=== PATIENT | female | born 1970 | race African-American/Black ===

== ENCOUNTER 2017-02-25 08:41 | Outpatient (RCR) | payer SELFPAY ==
[2016-12-04 11:41] VITALS: BP 110/71
--- NOTE | 2016-12-06 09:46 | ONCOLOGY FOLLOW UP NOTE ---
EVENT DATE: December 04, 2016 REASON FOR FOLLOWUP Metastatic low grade endometrial stromal sarcoma. CHIEF COMPLAINT Patient feels well today. HISTORY OF PRESENT ILLNESS Keerthi is a delightful 46-year-old female who is here for followup after hospitalization at the [facility] in [place], [place]. She is here with her boyfriend today. To review, she had been admitted on November 17 with new-onset diabetes mellitus presenting as diabetic ketoacidosis. She had complaints at that time of abdominal pain, and at a recent presentation in [place], she had been incidentally noted to have pulmonary nodules. She was treated appropriately for the ketoacidosis, and she was also seen in consultation by Dr. Modi and myself from a medical oncology perspective. There was some initial difficulty in getting an endometrial biopsy , due to imaging concerns for a large uterine/left adnexal mass. This was seen on CT scan from November 17. She did have a core needle biopsy of a lung lesion, revealing evidence of metastatic low grade endometrial stromal sarcoma. There was some thought given to initiating chemotherapy, and she did undergo port placement, which she did quite well with. She was discharged home, and she is here to discuss further management. The patient does not have any medical coverage, and she is currently between jobs. She has not yet visited with a social human services assistants here in [place]. PAST MEDICAL HISTORY 1. Diabetes mellitus, as above. 2. Asthma. PAST SURGICAL HISTORY None on file. FAMILY HISTORY Unremarkable for malignancy. SOCIAL HISTORY Patient is a former smoker, having previously smoked about 10 cigarettes a day for five years. She quit one year ago. She is a nondrinker, and there is no history of illicit drug use. CURRENT MEDICATIONS 1. Hydrocodone p.r.n. 2. Insulin. ALLERGIES No known drug allergies. VITAL SIGNS Temperature is 97.6, blood pressure 115/71, heart rate is 82, respirations 16, oxygen saturation is 95% on room air. Weight is 102.9 kg. PHYSICAL EXAMINATION GENERAL: Patient is alert and oriented times three, in no apparent distress sitting in the exam room chair. She appears quite healthy. She is interactive and very pleasant. HEENT: Exam reveals anicteric sclerae. NEUROLOGIC: Exam is grossly nonfocal and her gait is normal. EXTREMITIES: Exam reveals no edema, clubbing or cyanosis. There is no erythema or tenderness to palpation of the extremities. The rest of the physical exam was deferred for extensive discussion today. LABORATORY STUDIES Reviewed per the [facility] [employer] record. IMAGING CT scan of chest, abdomen and pelvis from November 17 reveals a large uterine/ left adnexal mass likely a primary neoplasm. The adnexal component measured 8.2 x 4.6 cm, and appeared to communicate with the endometrial stripe. There appeared to be tumoral extension into the left ovarian vein and probable tumoral and bland thrombus extending superiorly into the left renal vein. There were greater than 30 pulmonary nodules, as well as questionable small peritoneal nodules, but no evidence of ascites. Endovaginal ultrasound performed on November 18 reveals a low attenuating mass abutting the endometrium, measuring 6.2 cm, and extending beyond the confines of the normal border of the uterus. PATHOLOGY CT-guided biopsy of a right lower lobe pulmonary nodule performed on November 20, 2016 revealed evidence of low grade endometrial stromal sarcoma. ASSESSMENT AND PLAN 1. Metastatic low grade endometrial stromal sarcoma. I had a good visit with the patient today. We reviewed some of the discussion that had taken place when she was admitted at the hospital in [place]. We moved on to discuss the results of her endometrial biopsy, which was unrevealing. We discussed the diagnosis of low grade endometrial stromal sarcoma, and this is a very rare entity. There is limited data to suggest what would be considered optimal first -line therapy, but therapy at this point does appear to be palliative in nature. She has multiple pulmonary nodules, and there does not appear to be a good surgical option in that regard. She has not yet met with Gynecologic Oncology due to lack of insurance/Medicaid. We discussed systemic therapy that could potentially be helpful for her. This would include the possibility of aromatase inhibitor, gonadotropin releasing hormone agents, as well as Megace. We discussed that there have been no [id number] comparisons for these remedies , given the rarity of this cancer. The patient does not have any medical coverage currently, and she absolutely needs to visit with the social human services assistants today to get on track. She is also between jobs. Once we are able to improve on her medical coverage situation, I would want her to be seen by Gynecologic Oncology at the [facility]. In the meantime, we will evaluate how expensive one of these medication classes would be for her. In all likelihood, we will rely on finances and tolerability of the medication. Patient had several further questions for me today, and I believe I answered all of her questions to her satisfaction. I will plan to see her back in my [place] clinic in about six weeks, sooner if there are questions or concerns. 2. Newly diagnosed diabetes, presenting with diabetic ketoacidosis. The patient needs to establish with a primary care provider here in [place]. I spent a total of 30 minutes of time [id number] with the patient and her boyfriend today, and 25 minutes of this was spent in direct counseling and coordination of care. LINDA
[2016-12-19 13:21] VITALS: BP 98/72
--- NOTE | 2016-12-19 14:10 | ONC Progress Note - NP.Halsey ---
Patient History Date of Service Dec 19, 2016 Reason For Visit/HPI Patient is seen in the clinic today with her boyfriend for education with Arimidex for her metastatic low grade endometrial stromal sarcoma. She previously consulted with Dr. Acuna to discuss her plan of care. In review , patient is pre-menopausal and has monthly periods lasting 5-7 days, although they are noted to be irregular. She reports that she is diabetic and is learning how to control her blood sugars. She feels that although it is a challenge she is doing well. Side effects were reviewed with patient regarding the Arimidex which include increased fatigue, hot flashes, blood clots or PE with side effect of warmth or acute pain in an extremity or acute shortness of breath. Joint aches could occur much like arthritis symptoms. There is a low risk of nausea and change in bowels. Written information was reviewed with patient and then given to her today. She verbalized understanding. I did share with her that I did not want her to start the medication that she should receive in the mail until I discussed the fact that she is pre- menopausal with Dr. Acuna. Arimidex is usually used for only post menopausal patient's but her case may be different and I may not know all the necessary information in the decision making. She agreed to this plan. Problem List (1) Endometrial adenocarcinoma (2) Adenocarcinoma of endometrium, stage 4 (3) Hyperkalemia (4) Diabetic ketoacidosis (5) Lung mass Oncology History Keerthi is a 46-year-old female who was recently hospitalizated at the [facility] in [place], [place]. She was admitted on November 17 with new-onset diabetes mellitus presenting as diabetic ketoacidosis. She had complaints at that time of abdominal pain, and at a recent presentation in [place], she had been incidentally noted to have pulmonary nodules. She was treated appropriately for the ketoacidosis, and she was also seen in consultation by Dr. Modi and Dr. Acuna. There was some initial difficulty in getting an endometrial biopsy, due to imaging concerns for a large uterine/left adnexal mass. This was seen on CT scan from November 17. She did have a core needle biopsy of a lung lesion, revealing evidence of metastatic low grade endometrial stromal sarcoma. There was some thought given to initiating chemotherapy, and she did undergo port placement, which she did quite well with. She was discharged home, The patient does not have any medical coverage, and she is currently between jobs. Arimidex 1mg tablet is available to patient at no cost through prescription plan arranged by social media senior associate. Psychosocial History Social History She is single but has a significant other. Occupational History Unemployed at this time Alcohol History She is a nondrinker Smoking History: Yes Smoking Status: Former Smoker (quit in 2016) Exposure to Second Hand Smoke?: Yes Medications and Allergies Reported Medications Anastrozole (ARIMIDEX) 1 Mg Tablet, 1 MG PO DAILY 12/19/16 Acetaminophen (TYLENOL) 325 Mg Tablet, 325 MG PO PRN, TAB 12/19/16 Insulin Regular, Human (NOVOLIN R) 100 Unit/1 Ml Vial, 100 UNIT IJ SS, VIAL 12/04/16 Nph, Human Insulin Isophane (NOVOLIN N) 100 Unit/1 Ml Vial, 100 UNIT SQ BID, VIAL 12/04/16 Hydrocodone Bit/Acetaminophen (HYDROCODON-ACETAMINOPHEN 5-325) 1 Each Tablet, 1 EACH PO PRN, TAB 12/04/16 Allergies: Coded Allergies: No Known Drug Allergies (Unverified , 03/16/13) Review of System/Physical Exam Physical Exam Vital Signs Temperature: 98.1 Pulse: 77 BP Systolic: 98 BP Diastolic: 72 Respiratory Rate: 16 O2 SAT: 96 O2 Delivery: Height (inches) 68.00 Weight lb: 200 Weight oz: Weight Kg (Doroteo): Pain: 0 Assessment and Plan Assessment & Plan 1. 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 Dr. Acuna discussed the fact that there is limited data to suggest what would be considered optimal first-line therapy, but therapy at this point does appear to be palliative in nature. She has multiple pulmonary nodules, and there does not appear to be a good surgical option in that regard. She has not yet met with Gynecologic Oncology due to lack of insurance/Medicaid. Systemic therapy that could potentially be helpful for her was reviewed to include one of the aromatase inhibitor, gonadotropin releasing hormone agents, as well as Megace. Education regarding Arimidex was completed today to include side effects. Written information was given to patient to review further. Patient verbalized understanding and was aware of acute side effects such as a PE or DVT. Patient was instructed to hold the oral Arimidex until further conversation with Dr. Acuna was completed. After conversing, she needs to be started on Lupron 3.75mg monthly to place her in a menopausal state and then can start Arimidex for treatment of her disease. Patient was notified of this plan of care. I will contact social media senior associate and have them initiate Lupron support. Dr. Acuna does want her to be seen by Gynecologic Oncology at the [facility]. In the meantime, we will evaluate how expensive one of these medication classes would be for her. In all likelihood, we will rely on finances and tolerability of the medication. Patient is scheduled to follow with Dr. Acuna in 6 weeks for follow up and I will move this up to next time he is here to further discuss treatment and hopefully she will have approval and will be able to start treatment. 2. Newly diagnosed diabetes, presenting with diabetic ketoacidosis. The patient has established care with Chuy Candelaria NP in [place] as her primary care provider. I personally spent a total of 20 minutes. Of that 15 minutes was counseling/ coordination of patient's care. See my note above for details. Patient has requested that this dictation be faxed to Deirdre at [facility] at [phone] Copies to: CHUY CANDELARIA NP, NANCY J CLIN NURSE-BC, ONC Dec 19, 2016 14:10
[2016-12-24] MEDS: HEPARIN FLSH (PORT) 500 UN/5ML IVP PRN (11:53)
[2016-12-24] MEDS: LIDOCAINE/SOD BICARB 8.4% SYR ID PRN (11:53)
[2017-01-08 10:03] VITALS: BP 100/57
--- NOTE | 2017-01-10 13:19 | ONCOLOGY FOLLOW UP NOTE ---
EVENT DATE: January 08, 2017 REASON FOR FOLLOWUP Metastatic low grade endometrial stromal sarcoma. CHIEF COMPLAINT Patient feels well today. HISTORY OF PRESENT ILLNESS Patient returns to clinic for a follow-up visit today. She is accompanied by her significant other. Since our last visit, she has been feeling about the same, but she does report that she had woken up a few weeks ago with pain of the right lateral lower chest. She states that it felt like she had "broken a rib." She had not sought medical attention for this, and the pain has improved significantly over time. It is currently quite mild. She reports no fevers, chills or sweats. She denies shortness of breath and productive cough. Her appetite is good, and her weight has been stable. She has been frustrated in her job [employer], and she has not yet found employment. She has been working with [facility] staff to get Medicaid, and work has also been done to get her access to Lupron and anastrozole. She has filled her prescription for anastrozole, but she has not yet begun taking it. She is due to receive her first Lupron injection today. REVIEW OF SYSTEMS Otherwise negative, and all systems are reviewed. PAST MEDICAL HISTORY 1. Diabetes mellitus, as above. 2. Asthma. PAST SURGICAL HISTORY None on file. FAMILY HISTORY Unremarkable for malignancy. SOCIAL HISTORY Patient is a former smoker, having previously smoked about 10 cigarettes a day for five years. She quit one year ago. She is a nondrinker, and there is no history of illicit drug use. CURRENT MEDICATIONS 1. Hydrocodone p.r.n. 2. Insulin. ALLERGIES No known drug allergies. VITAL SIGNS Temperature is 98.0, blood pressure 100/57, heart rate is 70, respirations 16, oxygen saturation is 97% on room air. Weight is 100.5 kg. PHYSICAL EXAMINATION GENERAL: Patient is alert and oriented times three, in no apparent distress sitting in the exam room chair. She is interactive and quite pleasant. She appears healthy. HEENT: Exam reveals anicteric sclerae. NEUROLOGIC: Exam is grossly nonfocal and her gait is normal. SKIN: Exam reveals no concerning rash or lesion. EXTREMITIES: Exam reveals no edema, clubbing or cyanosis. LABORATORIES AND IMAGING Reviewed per the [employer] [facility] [employer] records. ASSESSMENT AND PLAN Metastatic low grade endometrial stromal sarcoma. I had a good visit with the patient and her today. Symptomatically, she continues to do pretty well. I am somewhat skeptical that her right lower chest pain is cancer related , as it has improved substantially over time. She has not yet begun any type of treatment for her low grade stromal sarcoma, but she is prepared to begin treatment today. We will administer Lupron, and she will begin taking her anastrozole. We reviewed some common side effects of these medications. We moved on to discuss the importance of pushing onward to try to get Medicaid coverage for her. I strongly recommend that she be seen at the [facility] by a Gynecology Oncology, and Medicaid will need to be in place. She reports that she believes that she has turned over all appropriate paperwork. I have reviewed her situation with staff in Case Management here. These efforts will continue. Patient will have followup here in one month for a toxicity check. Depending on how things are going at that time, I would anticipate seeing her again in my clinic in two to three months. YORDAND
[2017-01-29] MEDS: LIDOCAINE/SOD BICARB 8.4% SYR ID PRN (09:47)
[2017-01-29] MEDS: HEPARIN FLSH (PORT) 500 UN/5ML IVP PRN (10:47)
[2017-01-29 10:50] VITALS: BP 114/85
--- NOTE | 2017-01-29 12:05 | RADIOLOGY IMAGING REPORT ---
FACILITY: [facility] [place] PATIENT NAME: Keerthi Vasquez : 1970 MR: [id number] V: [id number] EXAM DATE: ORDERING PHYSICIAN: DARSHAN LEVINE TECHNOLOGIST: Location: [facility] Patient: Keerthi Vasquez : 1970 Visit/Account:[id number] Date of Sevice: 01/29/2017 CHEST/AB/PELV W/CONTRAST HISTORY: Endometrial cancer ADDITIONAL HISTORY: None. TECHNIQUE: Following administration of IV contrast axial images acquired through the chest abdomen a nd pelvis during the portal venous phase. Coronal and sagittal reformatting was also performed. Dose Lowering Technique One of the following dose optimization techniques was utilized in the performance of this exam: Autom ated exposure control; adjustment of the mA and/or kV according to the patient's size; or use of an i terative reconstruction technique. Specific details can be referenced in the facility's radiology C T exam operational policy. CONTRAST: 75 mL Isovue-370 COMPARISON: None. FINDINGS: CHEST: Lungs/Pleura: There are numerous noncalcified pulmonary nodules seen throughout the lungs consistent with pulmonary metastases. The largest right upper lobe nodule measures 1.5 cm in diameter and is best seen on image 43 of serie s 3. The largest right middle lobe nodule measures 9 mm and is best seen on image 61. The largest right lower lobe nodule measures 1.7 cm in diameters best seen on image 73 The largest left lower lobe pulmonary nodule measures 1.3 cm in diameters best seen on image 87 The largest left upper lobe pulmonary nodule measures 1.3 cm in diameters best seen on image 37. There Is a small amount of patchy airspace consolidation in the medial left upper lobe No evidence of pleural effusions. Mediastinum/lymph nodes: Negative. Heart/vessels: Pulmonary emboli are noted in the segmental and subsegmental arterial branches to the right lower lobe Bones/soft tissues: There is a gentle S-shaped scoliosis of the thoracolumbar spine. No aggressive appearing bone lesions are seen ABDOMEN AND PELVIS: Hepatobiliary: Negative. Spleen: There is a 7 mm calcification medial aspect of the spleen Pancreas: Negative. Adrenals: Negative. Kidneys ureters and bladder : There is a subcentimeter cortical hypodensity midpole of the left kidne y which is too small to characterize Genitalia: Uterus is enlarged extremely heterogeneous with distortion of the endometrial canal. Ther e is a hypoattenuating mass measuring 7.7 x 3.2 x 4 cm projecting from the superior left side of the uterus there is an additional hypoattenuating process measuring 3.1 x 2.6 x 5.1 cm projecting from th e right lateral aspect of the uterus this is apparently related to patient's reported endometrial mal ignancy. GI: Negative. Vessels/spaces/nodes: There is a 1.2 x 0.7 cm left para-aortic lymph nodes node. There is a 1.2 x 0.8 cm left external iliac lymph node Bones/soft tissues: No aggressive appearing bone lesions are seen Additional findings: None pertinent. IMPRESSION: The uterus is enlarged extremely heterogeneous with distortion of the endometrial canal. The hypoatt enuating masses projecting from both the right lateral aspect the uterus and superior left lateral as pect of the uterus (the latter being larger) apparently related to patient's reported endometrial mal ignancy There is a 1.2 x 0.7 cm left para-aortic lymph node and a 1.2 x 0.8 cm left external iliac lymph node There are numerous large pulmonary nodules throughout both lungs consistent with pulmonary metastases as detailed above A small volume of pulmonary emboli are noted in the segmental and subsegmental arterial branches to t he right lower lobe Results were called to Jana Whaley 01/29/2017 11:59 AM. A message was also left for Dulce Dominguez. Report Dictated By: Lolis Colón MD at 01/29/2017 11:35 AM Report E-Signed By: Lolis Colón MD at 01/29/2017 12:01 PM CHRISTINAN:YIMI
--- NOTE | 2017-01-29 15:30 | ONC Progress Note - NP.Halsey ---
Patient History Date of Service Jan 29, 2017 Reason For Visit/HPI Patient is seen in the clinic today for review of recent CT scan that was completed for her metastatic low-grade endometrial stromal sarcoma. Patient is currently on Arimidex and Lupron injections. There is a very low risk of developing a pulmonary embolism while on Arimidex. Patient is tolerating treatment without difficulty. CT scan shows a small volume pulmonary embolism noted on the right lower lobe. Patient is denying shortness of breath or difficulty breathing. She has reported that she's had a mild discomfort on the right scapular area which is new over the last several days. Oncology History Keerthi is a 46-year-old female who was recently hospitalizated at the [facility] in [place], [place]. She was admitted on November 17 with new-onset diabetes mellitus presenting as diabetic ketoacidosis. She had complaints at that time of abdominal pain, and at a recent presentation in [place], she had been incidentally noted to have pulmonary nodules. She was treated appropriately for the ketoacidosis, and she was also seen in consultation by Dr. Modi and Dr. Acuna. There was some initial difficulty in getting an endometrial biopsy, due to imaging concerns for a large uterine/left adnexal mass. This was seen on CT scan from November 17. She did have a core needle biopsy of a lung lesion, revealing evidence of metastatic low grade endometrial stromal sarcoma. There was some thought given to initiating chemotherapy, and she did undergo port placement, which she did quite well with. She was discharged home, The patient does not have any medical coverage, and she is currently between jobs. Arimidex 1mg tablet is available to patient at no cost through prescription plan arranged by foster care social worker. Lupron injection administered on 01/22/2017. Psychosocial History Social History She is single but has a significant other. Occupational History Unemployed at this time Alcohol History She is a nondrinker Exposure to Second Hand Smoke?: Yes Medications and Allergies Active Scripts Apixaban (ELIQUIS) 5 Mg Tablet, 5 MG PO BID for 30 Days, #60 TAB 5 Refills Take 5mg bid after completion of 10mg bid x 7 days Prov:DULCE PUGA CLASSROOM COORDINATOR-BC, ONC 01/29/17 Apixaban (ELIQUIS) 5 Mg Tablet, 10 MG PO BID for 7 Days, #14 TAB Take 10mg bid x 7 days then decrease to 5mg po bid x 6 months Prov:DULCE PUGA Diamante CLASSROOM COORDINATOR-BC, ONC 01/29/17 Leuprolide Acetate (LUPRON DEPOT) 3.75 Mg Syringekit, 3.75 MG IM q28 days, #12 MG Prov:DULCE PUGA Diamante CLASSROOM COORDINATOR-BC, ONC 12/20/16 Reported Medications Anastrozole (ARIMIDEX) 1 Mg Tablet, 1 MG PO DAILY 12/19/16 Acetaminophen (TYLENOL) 325 Mg Tablet, 325 MG PO PRN, TAB 12/19/16 Insulin Regular, Human (NOVOLIN R) 100 Unit/1 Ml Vial, 100 UNIT IJ SS, VIAL 12/04/16 Nph, Human Insulin Isophane (NOVOLIN N) 100 Unit/1 Ml Vial, 100 UNIT SQ BID, VIAL 12/04/16 Hydrocodone Bit/Acetaminophen (HYDROCODON-ACETAMINOPHEN 5-325) 1 Each Tablet, 1 EACH PO PRN, TAB 12/04/16 Allergies: Coded Allergies: No Known Drug Allergies (Unverified , 03/16/13) Review of System/Physical Exam Review of Systems All Systems Reviewed/Normal: Yes, Except as Noted Hematologic: Positive for Fatigue Musculoskeletal: Positive for Muscle Pain (noted in the right scapular area) Physical Exam Vital Signs Temperature: 97.8 Pulse: 63 BP Systolic: 114 BP Diastolic: 85 Respiratory Rate: 16 O2 SAT: 96 O2 Delivery: Height (inches) 68.00 Weight lb: Weight oz: Weight Kg (Doroteo): Pain: 0 ECOG Score: 0 General: Stable, Well Developed, Well Nourished, Not In Acute Distress HEENT: No Trauma, No Icterus, No Mucositis Neck: Supple Heart: Regular Rate, Regular Rhythm Abdomen: Soft and Nontender, No Hepatosplenomegaly Extremities: No Edema Psychiatric: Mood appears normal, Affect appears normal Skin: No Skin Rashes, No Bruising, No Purpura Diagnostic Studies Diagnostic Studies Radiology IMPRESSION: The uterus is enlarged extremely heterogeneous with distortion of the endometrial canal. The hypoattenuating masses projecting from both the right lateral aspect the uterus and superior left lateral aspect of the uterus (the latter being larger) apparently related to patient's reported endometrial malignancy There is a 1.2 x 0.7 cm left para-aortic lymph node and a 1.2 x 0.8 cm left external iliac lymph node There are numerous large pulmonary nodules throughout both lungs consistent with pulmonary metastases as detailed above A small volume of pulmonary emboli are noted in the segmental and subsegmental arterial branches to the right lower lobe Results were called to Jana Whaley 01/29/2017 11:59 AM. A message was also left for Dulce Puga. Report Dictated By: Lolis Colón MD at 01/29/2017 11:35 AM Assessment and Plan Assessment & Plan 1. 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 Dr. Acuna discussed the fact that there is limited data to suggest what would be considered optimal first-line therapy, but therapy at this point does appear to be palliative in nature. She has multiple pulmonary nodules, and there does not appear to be a good surgical option in that regard. She has not yet met with Gynecologic Oncology due to lack of insurance/Medicaid. She does have an appointment with in [place] this Friday. She is currently on Arimidex and Lupron therapy x one week. Lupron 3.75mg monthly to place her in a menopausal state and then can start Arimidex for treatment of her disease. Patient has a pulmonary embolism on recent CT scan that was reviewed with her today. Because patient has not been on medication very long it is very possible that this pulmonary embolism has been there. Patient has several pulmonary metastasis and lymphadenopathy in the abdominal area. Please see report. No change in treatment at this time. Plan of care may change after patient meets with [facility] surgeon. 2. Newly diagnosed diabetes, presenting with diabetic ketoacidosis. The patient has established care with Mari Candelaria NP in [place] as her primary care provider. 3. New evidence of pulmonary embolism in the right lower lobe. Patient is educated today regarding treatment with Eliquis. She will be started on 10 mg tabs by mouth twice a day 10 days followed by 5 mg tabs by mouth twice a day 6 months. Patient will be reevaluated prior to discontinuation. She is encouraged to let her surgeon no that she has been started on a new medication. I personally spent a total of 35 minutes. Of that 35 minutes was counseling/ coordination of patient's care. Copies to: DARSHAN LEVINE MD, NANCY J CLASSROOM COORDINATOR-BC, ONC Jan 29, 2017 15:30
[2017-01-29 16:21] VITALS: BP 121/81
[2017-02-05 09:34] VITALS: BP 114/70
--- NOTE | 2017-02-05 10:35 | ONC Progress Note - NP.Halsey ---
Patient History Date of Service Feb 05, 2017 Reason For Visit/HPI Patient is seen in the clinic today for follow-up after starting eliquis for small volume pulmonary embolism noted in the right lower lobe on recent CT. Patient is currently on Arimidex and Lupron injection for her metastatic low- grade endometrial stromal sarcoma. Patient had CT scan completed recently which was reviewed with her last office visit and is showing a response to current treatment. Patient followed with TECHNOLOGY EDUCATION INSTRUCTOR surgeon in [place]. She reports that she refused to have a hysterectomy due to emotional attachments to her uterus and it being the connection between her and her children that are no longer in her custody. Patient denies any side effects with the eliquis and denies any shortness of breath or difficulty breathing. I will have social science teacher assist with medication replacement. Patient will also be due for Lupron injection on 2016. Oncology History Keerthi is a 46-year-old female who was recently hospitalizated at the [facility] in [place], [place]. She was admitted on November 17 with new-onset diabetes mellitus presenting as diabetic ketoacidosis. She had complaints at that time of abdominal pain, and at a recent presentation in [place], she had been incidentally noted to have pulmonary nodules. She was treated appropriately for the ketoacidosis, and she was also seen in consultation by Dr. Modi and Dr. Acuna. There was some initial difficulty in getting an endometrial biopsy, due to imaging concerns for a large uterine/left adnexal mass. This was seen on CT scan from November 17. She did have a core needle biopsy of a lung lesion, revealing evidence of metastatic low grade endometrial stromal sarcoma. There was some thought given to initiating chemotherapy, and she did undergo port placement, which she did quite well with. She was discharged home, The patient does not have any medical coverage, and she is currently between jobs. Arimidex 1mg tablet is available to patient at no cost through prescription plan arranged by social science teacher. Lupron injection administered on 01/22/2017. Psychosocial History Social History She is single but has a significant other. Occupational History Unemployed at this time Alcohol History She is a nondrinker Exposure to Second Hand Smoke?: Yes Medications and Allergies Active Scripts Apixaban (ELIQUIS) 5 Mg Tablet, 5 MG PO BID for 30 Days, #60 TAB 5 Refills Take 5mg bid after completion of 10mg bid x 7 days Prov:URMILA PUGA TRAIN BRAKER-BC, ONC 01/29/17 Apixaban (ELIQUIS) 5 Mg Tablet, 10 MG PO BID for 7 Days, #14 TAB Take 10mg bid x 7 days then decrease to 5mg po bid x 6 months Prov:URMILA PUGA TRAIN BRAKER-BC, ONC 01/29/17 Leuprolide Acetate (LUPRON DEPOT) 3.75 Mg Syringekit, 3.75 MG IM q28 days, #12 MG Prov:URMILA PUGA Diamante TRAIN BRAKER-BC, ONC 12/20/16 Reported Medications Anastrozole (ARIMIDEX) 1 Mg Tablet, 1 MG PO DAILY 12/19/16 Acetaminophen (TYLENOL) 325 Mg Tablet, 325 MG PO PRN, TAB 12/19/16 Insulin Regular, Human (NOVOLIN R) 100 Unit/1 Ml Vial, 100 UNIT IJ SS, VIAL 12/04/16 Nph, Human Insulin Isophane (NOVOLIN N) 100 Unit/1 Ml Vial, 100 UNIT SQ BID, VIAL 12/04/16 Hydrocodone Bit/Acetaminophen (HYDROCODON-ACETAMINOPHEN 5-325) 1 Each Tablet, 1 EACH PO PRN, TAB 12/04/16 Allergies: Coded Allergies: No Known Drug Allergies (Unverified , 03/16/13) Review of System/Physical Exam Review of Systems All Systems Reviewed/Normal: Yes, Except as Noted Hematologic: Positive for Fatigue Physical Exam Vital Signs Temperature: 98.3 Pulse: 80 BP Systolic: 114 BP Diastolic: 70 Respiratory Rate: 16 O2 SAT: 96 O2 Delivery: Height (inches) 68.00 Weight lb: Weight oz: Weight Kg (Doroteo): Pain: 0 ECOG Score: 0 General: Stable, Well Developed, Well Nourished, Not In Acute Distress Lungs: Clear to Auscultation Heart: Regular Rate, Regular Rhythm Extremities: No Cyanosis, No Clubbing, No Edema Psychiatric: Mood appears normal, Affect appears normal Skin: No Skin Rashes, No Bruising, No Purpura Assessment and Plan Assessment & Plan 1. 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 Dr. Acuna discussed the fact that there is limited data to suggest what would be considered optimal first-line therapy, but therapy at this point does appear to be palliative in nature. She had multiple pulmonary nodules on baseline CT scan from11-17-16, and there she did not appear to be a good surgical option in that regard. She was started on Lupron 3.[address] her in a menopausal state and then Arimidex 1 mg daily. Patient then experienced a pulmonary embolism on recent CT scan and was started on eliquis. Fortunately she has also had a good response to treatment with a significant decrease in the pulmonary nodules and uterus mass has decreased from 8.6 to 7.7 cm. patient did follow with in [place] last Claudio and receive the recommendation for a hysterectomy however patient has refused this form of treatment due to emotional ties. She will continue on current form of treatment. I will have social science teacher continue replacement drug for Lupron, Arimidex and to initiate eliquis. Patient will follow in one month for Lupron injection. 2. Newly diagnosed diabetes, presenting with diabetic ketoacidosis. The patient has established care with Chuy Candelaria NP in [place] as her primary care provider. 3. New evidence of pulmonary embolism in the right lower lobe. Patient is educated today regarding treatment with Eliquis. She will be started on 10 mg tabs by mouth twice a day 10 days followed by 5 mg tabs by mouth twice a day 6 months or longer. Patient will be reevaluated prior to discontinuation. I personally spent a total of 35 minutes. Of that 35 minutes was counseling/ coordination of patient's care. Copies to: CHUY CANDELARIA NP, NANCY J TRAIN BRAKER-BC, ONC Feb 05, 2017 10:35
[2017-02-11 15:53] VITALS: BP 128/72
[~2017-02-25] VITALS: Ht 172.7 cm; Wt 105.0 kg
[~2017-02-25 08:41] MED LIST: ACET-1966 PO; ALBU8.5H12 IH; ALTEPLASE RECOMB 2 MG VIAL IVP PRN; ANAS1TAB35 PO; APIX5TAB PO; DEXTROSE 5%(*) 100 ML BAG 100 ML IVPB PRN; FLUC150T40 PO; HYDR-385 PO; LEUP3.753 IM; LEUPROLIDE IM ONLY ONE; LEUPROLIDE IM ONLY PRN; NOVOLINRPT IJ; NPH,100V12 SQ; NS(*) 0.9% 100 ML BAG 100 ML IVPB PRN; NS(*) 0.9% 500 ML BAG 500 ML IV PRN; TRIA15CR40 TP; WATER STERILE 10 ML VIAL IVP PRN
[2017-02-25] MEDS: HEPARIN FLSH (PORT) 500 UN/5ML IVP PRN (08:48)
[2017-02-25] MEDS: LIDOCAINE/SOD BICARB 8.4% SYR ID PRN (08:48)
[2017-02-25 08:58] VITALS: BP 107/82
== END 2017-03-03 ==
LOC: SPU 08:41
PROVIDERS: ATTEND Internal Medicine Medical Oncology
DX: C54.1 Malignant neoplasm of endometrium (principal); E11.10 Type 2 diabetes mellitus with ketoacidosis without coma; Z87.891 Personal history of nicotine dependence; R07.89 Other chest pain; R91.8 Other nonspecific abnormal finding of lung field; I26.99 Other pulmonary embolism without acute cor pulmonale; D73.89 Other diseases of spleen; N85.2 Hypertrophy of uterus; Z79.899 Other long term (current) drug therapy; R59.0 Localized enlarged lymph nodes
CPT/HCPCS: 71260; 74177; 96372; 96523; 99212; J1642; J1950; J7050; Q9967; 99202

== ENCOUNTER 2017-03-10 13:38 | Emergency (ER) | payer SELFPAY ==
[~2017-03-10] VITALS: Ht 172.7 cm; Wt 106.7 kg
[~2017-03-10 13:38] MED LIST changes: -ALTEPLASE RECOMB 2 MG VIAL IVP PRN; -DEXTROSE 5%(*) 100 ML BAG 100 ML IVPB PRN; +FERR-53 PO; -LEUPROLIDE IM ONLY ONE; -LEUPROLIDE IM ONLY PRN; -NS(*) 0.9% 100 ML BAG 100 ML IVPB PRN; -NS(*) 0.9% 500 ML BAG 500 ML IV PRN; -WATER STERILE 10 ML VIAL IVP PRN
[2017-03-10] MEDS ORDERED: [UNRECOGNIZED DRUG - OTHER] (13:54)
--- NOTE | 2017-03-10 14:07 | ER Report ---
History and Physical Time Seen By MD: 13:50 Hx. of Stated Complaint: "PASSING TISSUE" HPI/ROS CHIEF COMPLAINT: Passing tissue HISTORY OF PRESENT ILLNESS: Patient is a 46-year-old female who presents the ED with complaint of passing tissue and clots. She states that she was diagnosed with metastatic endometrial cancer last year and has been seeing oncology. She was subsequently diagnosed with a pulmonary embolism 3 weeks ago and has been on Eloquis since then. She states that she has not been having any menstrual periods but now feels that she is having a normal menstrual period and the amount of blood but is also has been having large pieces of tissue passed in the past 2 days. She does see a obstetric oncologist. She denies any abdominal pain. She has not had any chest pain or shortness of breath. She has not noted any dizziness. She states that she has recently started iron supplement as of last week due to some iron deficiency. She has not had any surgery for endometrial cancer thus far. Constitutional: No fever, no chills. Cardiovascular: No chest pain, no palpitations. Respiratory: No cough, no shortness of breath. Gastrointestinal: See history of present illness. No nausea, vomiting, diarrhea , constipation. Genitourinary: No hematuria. Musculoskeletal: No back pain. Skin: No rashes. Neurological: No headache. Allergies: Coded Allergies: No Known Drug Allergies (Unverified , 03/10/17) Home Meds Active Scripts Ferrous Sulfate (FERROUS SULFATE) 325 Mg Tablet, 325 MG PO BID for anemia, #60 TAB 6 Refills Prov:URMILA PUGA FOOD MIXER ASSEMBLER-BC, ONC 03/07/17 Apixaban (ELIQUIS) 5 Mg Tablet, 5 MG PO BID for 30 Days, #60 TAB 5 Refills Take 5mg bid after completion of 10mg bid x 7 days Prov:URMILA PUGA FOOD MIXER ASSEMBLER-BC, ONC 01/29/17 Apixaban (ELIQUIS) 5 Mg Tablet, 10 MG PO BID for 7 Days, #14 TAB Take 10mg bid x 7 days then decrease to 5mg po bid x 6 months Prov:URMILA PUGA FOOD MIXER ASSEMBLER-BC, ONC 01/29/17 Leuprolide Acetate (LUPRON DEPOT) 3.75 Mg Syringekit, 3.75 MG IM q28 days, #12 MG Prov:URMILA PUGA FOOD MIXER ASSEMBLER-BC, ONC 12/20/16 Reported Medications [Remedex] No Conflict Check 03/10/17 Anastrozole (ARIMIDEX) 1 Mg Tablet, 1 MG PO DAILY 12/19/16 Acetaminophen (TYLENOL) 325 Mg Tablet, 325 MG PO PRN, TAB 12/19/16 Insulin Regular, Human (NOVOLIN R) 100 Unit/1 Ml Vial, 100 UNIT IJ SS, VIAL 12/04/16 Nph, Human Insulin Isophane (NOVOLIN N) 100 Unit/1 Ml Vial, 100 UNIT SQ BID, VIAL 12/04/16 Hydrocodone Bit/Acetaminophen (HYDROCODON-ACETAMINOPHEN 5-325) 1 Each Tablet, 1 EACH PO PRN, TAB 12/04/16 Reviewed Nurses Notes: Yes Old Medical Records Reviewed: Yes Exposure to Second Hand Smoke?: Yes Hx Substance Use Disorder: No Hx Alcohol Use: No Constitutional Vital Sign - Last 24 Hours 03/10/17 03/10/17 03/10/17 03/10/17 13:38 13:43 13:49 13:53 Temp 97.6 Pulse ??? 79 75 Resp 14 B/P (MAP) 106/59 106/59 (75) Pulse Ox 98 97 O2 Delivery Room Air 03/10/17 03/10/17 03/10/17 14:00 14:08 15:00 Pulse 79 B/P (MAP) 102/73 (83) ???/??? (1665) Pulse Ox 98 Physical Exam General Appearance: The patient is alert, has no immediate need for airway protection and no signs of toxicity. She appears to be in no acute distress. Eyes: Pupils equal and round no pallor or injection. ENT, Mouth: Mucous membranes are moist. Respiratory: There are no retractions, lungs are clear to auscultation. Cardiovascular: Regular rate and rhythm. Gastrointestinal: Abdomen is soft and non tender, no masses, bowel sounds normal in all 4 quadrants. Pelvic exam: The vulva was normal no lesions. The vagina did not have significant discharge. The cervix was difficult to see due to body habitus. There was small amount of blood but no tissue or clots appreciated. No discharge appreciated. No adnexal tenderness. No masses and no tenderness. adnexa The exam was performed with a rating specialist. Skin: Warm and dry, no rashes. Musculoskeletal: Neck is supple non tender. Extremities are nontender, nonswollen and have full range of motion. Medical Decision Making Data Points Result Diagram: 03/10/17 1445 03/10/17 1445 Laboratory Hematology Test 03/10/17 14:45 Red Blood Count 4.18 M/uL (4.17-5.56) Mean Corpuscular Volume 74.4 fL (80.0-96.0) Mean Corpuscular Hemoglobin 22.6 pg (26.0-33.0) Mean Corpuscular Hemoglobin Concent 30.4 g/dL (32.0-36.0) Red Cell Distribution Width 17.0 % (11.5-14.5) Mean Platelet Volume 8.8 fL (7.2-11.1) Neutrophils (%) (Auto) 57.4 % (39.4-72.5) Lymphocytes (%) (Auto) 33.2 % (17.6-49.6) Monocytes (%) (Auto) 5.7 % (4.1-12.4) Eosinophils (%) (Auto) 2.9 % (0.4-6.7) Basophils (%) (Auto) 0.8 % (0.3-1.4) Nucleated RBC Relative Count (auto) 0.0 /100WBC Neutrophils # (Auto) 3.8 K/uL (2.0-7.4) Lymphocytes # (Auto) 2.2 K/uL (1.3-3.6) Monocytes # (Auto) 0.4 K/uL (0.3-1.0) Eosinophils # (Auto) 0.2 K/uL (0.0-0.5) Basophils # (Auto) 0.1 K/uL (0.0-0.1) Nucleated RBC Absolute Count (auto) 0.00 K/uL Prothrombin Time 15.4 seconds (12.0-14.4) Prothromb Time International Ratio 1.20 Activated Partial Thromboplast Time 103 seconds (23-35) Sodium Level 139 mmol/L (137-145) Potassium Level 3.5 mmol/L (3.5-5.0) Chloride Level 105 mmol/L (98-107) Carbon Dioxide Level 24 mmol/L (22-31) Blood Urea Nitrogen 12 mg/dl (7-18) Creatinine 0.90 mg/dl (0.52-1.04) Glomerular Filtration Rate Calc > 60.0 Random Glucose 165 mg/dl (75-110) Calcium Level 8.2 mg/dl (8.4-10.2) Total Bilirubin 0.3 mg/dl (0.2-1.3) Aspartate Amino Transf (AST/SGOT) 17 U/L (0-35) Alanine Aminotransferase (ALT/SGPT) 27 U/L (0-56) Alkaline Phosphatase 98 U/L (0-126) Total Protein 8.0 gm/dl (6.3-8.2) Albumin 3.5 g/dl (3.5-5.0) Chemistry Test 03/10/17 14:45 White Blood Count 6.6 k/uL (4.5-11.0) Red Blood Count 4.18 M/uL (4.17-5.56) Hemoglobin 9.5 g/dL (12.0-16.0) Hematocrit 31.1 % (34.0-47.0) Mean Corpuscular Volume 74.4 fL (80.0-96.0) Mean Corpuscular Hemoglobin 22.6 pg (26.0-33.0) Mean Corpuscular Hemoglobin Concent 30.4 g/dL (32.0-36.0) Red Cell Distribution Width 17.0 % (11.5-14.5) Platelet Count 272 K/uL (150-450) Mean Platelet Volume 8.8 fL (7.2-11.1) Neutrophils (%) (Auto) 57.4 % (39.4-72.5) Lymphocytes (%) (Auto) 33.2 % (17.6-49.6) Monocytes (%) (Auto) 5.7 % (4.1-12.4) Eosinophils (%) (Auto) 2.9 % (0.4-6.7) Basophils (%) (Auto) 0.8 % (0.3-1.4) Nucleated RBC Relative Count (auto) 0.0 /100WBC Neutrophils # (Auto) 3.8 K/uL (2.0-7.4) Lymphocytes # (Auto) 2.2 K/uL (1.3-3.6) Monocytes # (Auto) 0.4 K/uL (0.3-1.0) Eosinophils # (Auto) 0.2 K/uL (0.0-0.5) Basophils # (Auto) 0.1 K/uL (0.0-0.1) Nucleated RBC Absolute Count (auto) 0.00 K/uL Prothrombin Time 15.4 seconds (12.0-14.4) Prothromb Time International Ratio 1.20 Activated Partial Thromboplast Time 103 seconds (23-35) Glomerular Filtration Rate Calc > 60.0 Calcium Level 8.2 mg/dl (8.4-10.2) Total Bilirubin 0.3 mg/dl (0.2-1.3) Aspartate Amino Transf (AST/SGOT) 17 U/L (0-35) Alanine Aminotransferase (ALT/SGPT) 27 U/L (0-56) Alkaline Phosphatase 98 U/L (0-126) Total Protein 8.0 gm/dl (6.3-8.2) Albumin 3.5 g/dl (3.5-5.0) Coagulation Test 03/10/17 14:45 Prothrombin Time 15.4 seconds Prothromb Time International Ratio 1.20 Activated Partial Thromboplast Time 103 seconds ED Course/Re-evaluation ED Course Will obtain labs with patient. 03/10/2017 4:03:04 pm - Discussed all labs with patient. She does have some anemia that is slightly worse than last week which she also has not started her iron supplementation. Advised her to start this. She will need to watch the amount of bleeding that she is having and if this continues or worsens she needs to return to the emergency department. Will have her do full close follow- up with her candles pourer. Discussed patient with Dr. Makayla Daily, DUCT MAKER at [facility] , who advises to have patient continue her Alquist at this time and just monitor the bleeding and have close follow-up with gynecology here in [place]. Discussed all this with patient and she is comfortable with this plan. Decision to Disposition Date: Mar 10, 2017 Decision to Disposition Time: 16:04 Depart Departure Latest Vital Signs Vital Signs Date Time Temp Pulse Resp B/P (MAP) Pulse Ox O2 Delivery O2 Flow Rate FiO2 03/10/17 15:00 ???/??? (1665) 03/10/17 14:08 79 98 03/10/17 13:43 97.6 14 Room Air Impression: Primary Impression: Endometrial adenocarcinoma Additional Impressions: Vaginal bleeding Anemia Anticoagulation adequate Condition: Improved Disposition: HOME OR SELF-CARE Patient Instructions: Anemia (ED), Dysfunctional Uterine Bleeding (ED) Additional Instructions: Start your iron supplementation. Follow-up with primary care provider and OB/ GAS METER INSTALLER in 1-2 days. If having any worsening or concerning symptoms may return to the emergency department. MD Consult Note: Dr. Makayla Daily, DUCT MAKER at [facility] Problem Qualifiers Additional Impressions: Anemia Anemia type: unspecified type Qualified Codes: D64.9 - Anemia, unspecified ZOE VÁSQUEZ PA-C Mar 10, 2017 14:07
[2017-03-10] MEDS ORDERED: LIDOCAINE/PRILOCAINE 5 GM TUBE TP ONE (14:36)
[2017-03-10 14:54] LABS: PLATELET COUNT, AUTOMATED 272 K/uL (150-450)
[2017-03-10 15:11] LABS: INR 1.2
[2017-03-10 16:11] VITALS: BP 121/93
[2017-03-10] MEDS ORDERED: HEPARIN FLSH (PORT) 500 UN/5ML ONE (16:20)
== END 2017-03-10 17:00 | disposition home or self-care (01) ==
LOC: ER 13:46
DX: C54.1 Malignant neoplasm of endometrium (principal); D64.9 Anemia, unspecified; N93.9 Abnormal uterine and vaginal bleeding, unspecified; Z79.01 Long term (current) use of anticoagulants
CPT/HCPCS: 82040; 82247; 82310; 82374; 82435; 82565; 82947; 84075; 84132; 84155; 84295; 84450; 84460; 84520; 85025; 85610; 85730; 88305; 99284

== ENCOUNTER 2017-04-22 11:30 | Outpatient (RCR) | payer MEDICAID ==
[~2017-04-22 11:30] MED LIST changes: +[UNRECOGNIZED DRUG - OTHER]
[2017-04-24] MEDS ORDERED: NPH,100V12 SQ (15:52)
[2017-04-24] MEDS ORDERED: NOVOLINRPT IJ (15:52)
[2017-04-28] MEDS ORDERED: [UNRECOGNIZED DRUG - CODE] MC (15:10)
[2017-04-28] MEDS ORDERED: BLOO-1511 MC (15:10)
[2017-04-28] MEDS ORDERED: ISOP1TOW MC (15:10)
== END 2017-04-23 10:23 | disposition home or self-care (01) ==
LOC: RAON 11:30
PROVIDERS: ATTEND Radiology Radiation Oncology
DX: C54.1 Malignant neoplasm of endometrium (principal); E10.10 Type 1 diabetes mellitus with ketoacidosis without coma; Z79.899 Other long term (current) drug therapy; Z79.4 Long term (current) use of insulin; Z87.891 Personal history of nicotine dependence
CPT/HCPCS: 99202

== ENCOUNTER → 2017-04-24 | Outpatient (CLI) | payer MEDICAID ==
[~2017-04-24] MED LIST changes: +BLOO-1511 MC; +ISOP1TOW MC; +[UNRECOGNIZED DRUG - CODE] MC
== END ==
LOC: LAB 14:25
PROVIDERS: ATTEND Emergency Medicine
DX: E11.9 Type 2 diabetes mellitus without complications (principal); E66.9 Obesity, unspecified; E83.51 Hypocalcemia
CPT/HCPCS: 36415; 82306; 82465; 83036; 83718; 84443; 84478

== ENCOUNTER 2017-05-15 08:20 | Outpatient (RCR) | payer MEDICAID ==
[2017-03-05 14:43] VITALS: BP 103/75
[2017-03-05 15:54] LABS: PLATELET COUNT, AUTOMATED 235 K/uL (150-450)
--- NOTE | 2017-03-05 22:17 | ONCOLOGY FOLLOW UP NOTE ---
EVENT DATE: March 05, 2017 REASON FOR FOLLOWUP Metastatic low grade endometrial stromal sarcoma. CHIEF COMPLAINT Fatigue. HISTORY OF PRESENT ILLNESS Keerthi returns to the clinic for a follow-up visit today. She is accompanied by her significant other. She reports that for the most part she has been feeling okay, but fatigue has become more problematic. She did have a period of time for about one week recently where she had rather significant vaginal bleeding. This is after she had started Eliquis for recently diagnosed pulmonary embolus. She has been taking Eliquis for the PE, and has otherwise tolerated it well. She has had no further vaginal bleeding. She does report some modest hot flashes, but these have been tolerable. She has had no shortness of breath, chest pain, or productive cough. Her appetite is good, and her weight has been stable. She has had no changes in her bowel habits. REVIEW OF SYSTEMS Otherwise negative, and all systems were reviewed. PAST MEDICAL HISTORY 1. Diabetes mellitus, as above. 2. Asthma. PAST SURGICAL HISTORY None on file. FAMILY HISTORY Unremarkable for malignancy. SOCIAL HISTORY Patient is a former smoker, having previously smoked about 10 cigarettes a day for five years. She quit one year ago. She is a nondrinker, and there is no history of illicit drug use. CURRENT MEDICATIONS 1. Eliquis. 2. Lupron injections per protocol. 3. Arimidex 1 mg p.o. daily. 4. Tylenol p.r.n. 5. Insulin. 6. Hydrocodone/acetaminophen p.r.n. ALLERGIES No known drug allergies. VITAL SIGNS Temperature is 98.8, blood pressure 103/75, pulse is 80, respirations 16, oxygen saturation is 96% on room air. Weight is 106.7 kg. PHYSICAL EXAMINATION GENERAL: Patient is alert and oriented times three, in no apparent distress sitting in the exam room chair. She is interactive and quite pleasant. She appears somewhat tired. HEENT: Exam reveals anicteric sclerae. NEUROLOGIC: Exam is grossly nonfocal and her gait is normal. SKIN: Exam reveals no concerning rash or lesion. EXTREMITIES: Exam reveals no edema, clubbing or cyanosis. LABORATORY Studies are reviewed per the [facility] record. IMAGING CT of the chest, abdomen and pelvis performed on January 29, 2017 reveals an enlarged uterus with extreme heterogeneity and distortion of the endometrial canal. Hypoattenuating masses are projected from both the right lateral aspect of the uterus and superior left lateral aspect of the uterus. There is a 1.7 x 0.7 cm left periaortic lymph node and a 1.2 x 0.8 cm left external iliac lymph node. There are numerous large pulmonary nodules throughout both lungs. There is a small volume of pulmonary emboli noted in the segmental and subsegmental arterial branches to the right lower lobe. ASSESSMENT AND PLAN 1. Metastatic low grade endometrial stromal sarcoma. Keerthi continues on Lupron injections and Arimidex for treatment of her metastatic low grade endometrial stromal sarcoma. She has been tolerating therapy for the most part quite well, with the exception of fatigue. I would hope that with more time on therapy her fatigue will improve. With her recent history of what sounds like fairly heavy vaginal bleeding, likely due to the primary tumor itself, I would wonder about possible new iron deficiency anemia. We will check her labs again today. If she is iron deficient, we will start her on oral iron supplementation. If she does not tolerate this well, iron intravenously is certainly an option. We spent time today discussing her follow-up CT results. The CT scan was performed after a very short period of time on therapy, and it is already showing evidence of response compared to her prior study performed at the time of her diagnosis. She was aware of these results, and she is happy with how things are going in general. 2. Pulmonary emboli. Keerthi has started on Eliquis. For the most part, she has tolerated this well, but this has caused some vaginal bleeding, which at this point sounds self-limited. I have asked her to keep us posted of this bleeding, as if it does become more severe we may need to readdress her surgical options. Of note, I have reviewed records from Keerthi's recent visit with Gynecologic Oncology at [facility]. At this point, she has no intention of undergoing any kind of surgical management. She reports that her personal reasons for this are complicated, but she does feel that undergoing a surgery would in essence remove a connection that she feels with her children. Keerthi had several further questions for me today and I believe I answered all of her questions to her satisfaction. We will plan to have her follow up here in about one month with Dulce Dominguez, and in two months with me, [place] [facility] [place] [facility]ITAL[facility]itza
--- NOTE | 2017-03-07 15:28 | Oncology Note ---
Patient is called today to share that after Dr. Park reviewed her labs that she was iron deficient and he is recommending that she start on iron supplement 325 mg twice daily. A prescription was sent to [facility]. Patient reports that she is financially strapped and was not sure that she would be able to afford it. She will started as soon as she is able to obtain. If she has problems with toleration she will let the clinic know and we will consider IV infusion at that time. URMILA PUGA ADMISSIONS CLERK-BC, ONC Mar 07, 2017 15:28
--- NOTE | 2017-03-10 15:52 | Oncology Note ---
Patient is seen in the emergency room today for passing of blood clots. Dr. Daily called the clinic today to request weekly CBC as long as patient is passing blood. It has been recommended that she have a complete hysterectomy and she has followed with oncology TABLE ASSEMBLER but has refused. This will be discussed with patient again today in the emergency room. Patient is on eloquent us for recent pulmonary embolism. We will continue this treatment at this time. Patient may need an IVC filter in the future if eloquent has to be discontinued. Patient was recently started on iron supplement. I will arrange for a CBC this Friday and weekly. URMILA PUGA TRAPEZE ARTIST-BC, ONC Mar 10, 2017 15:52
[2017-04-08 13:20] VITALS: BP 98/72
[2017-04-08 14:35] LABS: PLATELET COUNT, AUTOMATED 286 K/uL (150-450)
--- NOTE | 2017-04-08 15:32 | ONC Progress Note - NP.Halsey ---
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 Patient previously was started on Lupron 3.75 mg injection monthly and her Arimidex. Patient then developed a pulmonary embolism and was started on Eliquis. Patient also recently followed with [facility] oncology with a recommendation to have a hysterectomy. Patient has refused due to financial reasons and emotional reasons. She verbalizes understanding that her disease is not curative and that without a hysterectomy it may shorten her life. More recently patient reported that she was having abnormal vaginal bleeding with large amount of clots. She was seen in the emergency room and Dr. Daily was contacted. The recommendation was that patient would have weekly CBC to monitor her hemoglobin and transfusions would be given with red blood cells if indicated of a hemoglobin less than 8. Because patient is on Eliquis, he is at an increased risk. If bleeding continued patient may need to be considered for a Green filter and placement of anticoagulation therapy. Today patient reports that she is feeling well and is only have an occasional spotting in the vaginal area. She does wear a pad denies soaking the pad throughout the day. She does change it every 2-3 hours just so it is fresh but it is never soaked. Patient denies any side effects with the Lupron injection. She is tolerating Arimidex without difficulty. She denies any shortness of breath, fatigue or myalgias, she has no hot flashes. She does report that her skin is slightly more sensitive. Problem List (1) IRON DEFICIENCY (2) Adenocarcinoma of endometrium, stage 4 (3) Endometrial adenocarcinoma (4) Lung mass Oncology History 1. Metastatic low-grade endometrial stromal sarcoma. Patient continues on Lupron injections and Arimidex for treatment. She is tolerating therapy well. Patient was started on iron supplement. To date patient continues to refuse a hysterectomy. She is interested in radiation therapy if it is an option. 2.Pulmonary emboli. Keerthi has started on Eliquis. For the most part, she has tolerated this well, but this has caused some vaginal bleeding, which at this point sounds self-limited. Psychosocial History Social History Patient is a former smoker, having previously smoked about 10 cigarettes a day for five years. She quit one year ago. She is a nondrinker, and there is no history of illicit drug use. Exposure to Second Hand Smoke?: Yes Medications and Allergies Active Scripts Ferrous Sulfate (FERROUS SULFATE) 325 Mg Tablet, 325 MG PO BID for anemia, #60 TAB 6 Refills Prov:URMILA PUGA YARN WEIGHER-BC, ONC 03/07/17 Apixaban (ELIQUIS) 5 Mg Tablet, 5 MG PO BID for 30 Days, #60 TAB 5 Refills Take 5mg bid after completion of 10mg bid x 7 days Prov:URMILA PUGA YARN WEIGHER-BC, ONC 01/29/17 Apixaban (ELIQUIS) 5 Mg Tablet, 10 MG PO BID for 7 Days, #14 TAB Take 10mg bid x 7 days then decrease to 5mg po bid x 6 months Prov:URMIAL PUGA YARN WEIGHER-BC, ONC 01/29/17 Leuprolide Acetate (LUPRON DEPOT) 3.75 Mg Syringekit, 3.75 MG IM q28 days, #12 MG Prov:URMILA PUGA YARN WEIGHER-BC, ONC 12/20/16 Reported Medications [Remedex] No Conflict Check 03/10/17 Anastrozole (ARIMIDEX) 1 Mg Tablet, 1 MG PO DAILY 12/19/16 Acetaminophen (TYLENOL) 325 Mg Tablet, 325 MG PO PRN, TAB 12/19/16 Insulin Regular, Human (NOVOLIN R) 100 Unit/1 Ml Vial, 100 UNIT IJ SS, VIAL 12/04/16 Nph, Human Insulin Isophane (NOVOLIN N) 100 Unit/1 Ml Vial, 100 UNIT SQ BID, VIAL 12/04/16 Hydrocodone Bit/Acetaminophen (HYDROCODON-ACETAMINOPHEN 5-325) 1 Each Tablet, 1 EACH PO PRN, TAB 12/04/16 Allergies: Coded Allergies: No Known Drug Allergies (Unverified , 03/10/17) Review of System/Physical Exam Review of Systems All Systems Reviewed/Normal: Yes, Except as Noted Respiratory: Positive for Shortness of Breath (noted with exertion) Hematologic: Positive for Fatigue (very low rate it is 0 or 1) Physical Exam Vital Signs Temperature: 98.2 Pulse: 68 BP Systolic: 98 BP Diastolic: 72 Respiratory Rate: 16 O2 SAT: 68 O2 Delivery: Height (inches) 68.00 Weight lb: 235 Weight oz: 2.0 Weight Kg (Doroteo): Pain: 0 ECOG Score: 0 General: Stable, Well Developed, Well Nourished, Not In Acute Distress HEENT: No Trauma, No Conjunctivitis, No Icterus, No Mucositis Neck: Supple Lungs: Clear to Auscultation Heart: Regular Rate, Regular Rhythm, No Gallops Abdomen: Soft and Nontender, No Hepatosplenomegaly, No Masses Extremities: No Cyanosis, No Clubbing, No Edema Lymphadenopathy: No Cervical Psychiatric: Mood appears normal, Affect appears normal Skin: No Skin Rashes, No Bruising, No Purpura Diagnostic Studies Diagnostic Studies Laboratory Laboratory Tests 04/08/17 14:13 Laboratory Tests 03/05/17 15:35: Iron Level 30, Total Iron Binding Capacity 373, Percent Iron Saturation 8.0, Ferritin 11 04/08/17 14:13: White Blood Count 3.6, Red Blood Count 3.94, Hemoglobin 9.5, Hematocrit 30.9, Mean Corpuscular Volume 78.4, Mean Corpuscular Hemoglobin 24.1, Mean Corpuscular Hemoglobin Concent 30.8, Red Cell Distribution Width 19.1, Platelet Count 286, Mean Platelet Volume 9.0, Neutrophils (%) (Auto) 46.8, Lymphocytes (% ) (Auto) 41.5, Monocytes (%) (Auto) 8.2, Eosinophils (%) (Auto) 2.3, Basophils ( %) (Auto) 1.2, Nucleated RBC Relative Count (auto) 0.0, Neutrophils # (Auto) 1.7 , Lymphocytes # (Auto) 1.5, Monocytes # (Auto) 0.3, Eosinophils # (Auto) 0.1, Basophils # (Auto) 0.0, Nucleated RBC Absolute Count (auto) 0.00, Sodium Level 137, Potassium Level 3.6, Chloride Level 103, Carbon Dioxide Level 24, Blood Urea Nitrogen 8, Creatinine 0.90, Glomerular Filtration Rate Calc > 60.0, Random Glucose 93, Calcium Level 8.5, Total Bilirubin 0.4, Aspartate Amino Transf (AST/SGOT) 26, Alanine Aminotransferase (ALT/SGPT) 24, Alkaline Phosphatase 94, Total Protein 8.1, Albumin 3.7 Assessment and Plan Assessment & Plan 1. Metastatic low-endometrial stromal sarcoma. Patient continues on Lupron injections monthly 3.75 mg dose and Arimidex 1 mg tab daily. She is tolerating treatment well with the exception of some mild fatigue. She has had an episode of heavy vaginal bleeding and was seen in the emergency room. Today she reports that it is only mild spotting. Her hemoglobin is decreased but not in the limit to require any blood transfusion today. Patient has started on iron supplement 2 tablets of ferrous sulfate daily and is tolerating it without difficulty area did she denies any constipation. We will continue to monitor with a CBC and a CMP and repeat ferritin studies in the future. 2. Pulmonary emboli. Patient continues on Eliquis a coagulation therapy with good toleration. She has had some vaginal bleeding which is reported to be only spotting at this time. She is encouraged to contact our clinic if she develops heavy bleeding. I did discuss with patient the indication of a hysterectomy with increased bleeding if this occurs. Patient reports that she followed with [facility] oncology and believes that there was a recommendation to complete radiation therapy. Patient is willing to pursue radiation therapy if this is an option. I will visit with Dr. Park regarding the indication. 3. Iron deficiency anemia. Her most recent ferritin level was 11. Patient was experiencing some fatigue. She was started on ferrous sulfate 375 mg twice daily. She has good toleration and denies any constipation. 4. Port flush and port maintenance completed monthly. Labs will be drawn from her port. I personally spent a total of 30 minutes. Of that 25 minutes was counseling/ coordination of patient's care. See my note above for details. URMILA PUGA YARN WEIGHER-BC, ONC Apr 08, 2017 15:32
[2017-04-08] MEDS: HEPARIN FLSH (PORT) 500 UN/5ML IVP PRN (16:05)
[2017-04-08] MEDS: LIDOCAINE/SOD BICARB 8.4% SYR ID PRN (16:05)
[~2017-05-15] VITALS: Ht 172.7 cm; Wt 106.7 kg
[~2017-05-15 08:20] MED LIST changes: +ALTEPLASE RECOMB 2 MG VIAL IVP PRN; +CHOL500016 PO; +DEXTROSE 5%(*) 100 ML BAG 100 ML IVPB PRN; +LEUPROLIDE IM ONLY ONE; +NS(*) 0.9% 100 ML BAG 100 ML IVPB PRN; +NS(*) 0.9% 500 ML BAG 500 ML IV PRN; +WATER STERILE 10 ML VIAL IVP PRN
[2017-05-15 08:26] VITALS: BP 116/78
[2017-05-15] MEDS ORDERED: LEUPROLIDE IM ONLY ONE ×2 (08:30)
[2017-05-15] MEDS: LIDOCAINE/SOD BICARB 8.4% SYR ID PRN (08:30)
[2017-05-15] MEDS: HEPARIN FLSH (PORT) 500 UN/5ML IVP PRN (08:38)
[2017-05-15 09:00] LABS: PLATELET COUNT, AUTOMATED 232 K/uL (150-450)
== END 2017-06-02 ==
LOC: SPU 08:20
PROVIDERS: ATTEND Internal Medicine Medical Oncology
DX: C54.1 Malignant neoplasm of endometrium (principal); R53.83 Other fatigue; Z86.711 Personal history of pulmonary embolism; Z79.01 Long term (current) use of anticoagulants; Z87.891 Personal history of nicotine dependence; E11.8 Type 2 diabetes mellitus with unspecified complications; Z79.4 Long term (current) use of insulin; D50.9 Iron deficiency anemia, unspecified
CPT/HCPCS: 36591; 82728; 83540; 83550; 85025; 96372; J1642; J1950; 82040; 82247; 82310; 82374; 82435; 82565; 82947; 84075; 84132; 84155; 84295; 84450; 84460; 84520

== ENCOUNTER 2017-06-18 07:34 | Outpatient (RCR) | payer MEDICAID ==
[~2017-06-18 07:34] MED LIST changes: -ALTEPLASE RECOMB 2 MG VIAL IVP PRN; -DEXTROSE 5%(*) 100 ML BAG 100 ML IVPB PRN; -LEUPROLIDE IM ONLY ONE; -NS(*) 0.9% 100 ML BAG 100 ML IVPB PRN; -NS(*) 0.9% 500 ML BAG 500 ML IV PRN; -WATER STERILE 10 ML VIAL IVP PRN
== END 2017-07-24 10:50 | disposition home or self-care (01) ==
LOC: SPU 07:34
PROVIDERS: ATTEND Internal Medicine Medical Oncology
DX: C54.1 Malignant neoplasm of endometrium (principal); E61.1 Iron deficiency

== ENCOUNTER 2017-12-28 20:41 | Emergency (ER) | payer SELFPAY ==
[~2017-12-28 20:41] MED LIST changes: +ANAS1TAB12 PO; -ANAS1TAB35 PO
[2017-12-28 20:47] VITALS: BP 133/103
--- NOTE | 2017-12-28 20:48 | ER Report ---
History and Physical Time Seen By MD: 20:48 HPI/ROS CHIEF COMPLAINT: Rash to chin HISTORY OF PRESENT ILLNESS: 47-year-old female patient presents to emergency room with complaint of rash to chin. Patient states she woke up this morning and her chin was itchy. She states that she scratched it did have some discomfort. When she looked in the mirror she noticed that there was some cracking along the chin. She states that she applied some antibiotic ointment which seemed to help. She states that she is concerned that she may have scabies. She states she's been working in [place] and has been back now for approximately 3 weeks. She states that she's never had anything like this previously. She denies any ivett nges to medications, lotions, perfumes. Patient states that she's also noticed that when she is washing herself that she has what appears to be small dark things are on the washcloth. She is concerned that she may have a parasitic infection. She's also knows that she has dry hands. 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 Patient denies having any fevers, chills, nausea, vomiting or diarrhea. She has not taken any medication for this. Allergies: Coded Allergies: No Known Drug Allergies (Unverified , 03/10/17) Home Meds Active Scripts Permethrin (PERMETHRIN) 60 Gm Cream..g., 60 GM TP ONCE, #1 TUB Prov:GIGI JOHNSON [facility] 12/28/17 Mupirocin Calcium (BACTROBAN) 15 Gm Cream..g., 1 CLAIRE TP TID for 7 Days, #15 GM Prov:GIGI JOHNSON [facility] 12/28/17 Cholecalciferol (Vitamin D3) (VITAMIN D3) 5,000 Unit Capsule, 5000 UNIT PO DAILY, #90 CAPSULE 0 Refills Prov:LANA MCCORMICK MD 05/08/17 Isopropyl Alcohol (ALCOH-WIPE) 1 Each Towelette, EACH MC DAILY, #4 3 Refills Prov:LANA MCCORMICK MD 04/28/17 Blood Sugar Diagnostic (GLUCOSE TEST STRIP) 1 Each Strip, 4 EACH MC DAILY, #360 STRIP 3 Refills Prov:LANA MCCORMICK MD 04/28/17 Syringe & Needle,Insulin,1 Ml (INSULIN SYRINGE) 1 Each Disp.syrin, EACH MC DAILY, #4 3 Refills Prov:LANA MCCORMICK MD 04/28/17 Insulin Regular, Human (NOVOLIN R) 100 Unit/1 Ml Vial, 100 UNIT IJ SS, #3 VIAL 3 Refills Prov:LANA MCCORMICK MD 04/24/17 Nph, Human Insulin Isophane (NOVOLIN N) 100 Unit/1 Ml Vial, 100 UNIT SQ DIRECTED, #6 VIAL 3 Refills 25 units QAM 20 units QPM Prov:LANA MCCORMICK MD 04/24/17 Ferrous Sulfate (FERROUS SULFATE) 325 Mg Tablet, 325 MG PO BID for anemia, #60 TAB 6 Refills Prov:URMILA PUGA [employer] WORKER-BC, ONC 03/07/17 Leuprolide Acet 3.75 Mg Qmonth (LUPRON DEPOT 3.75 MG QMONTH) 3.75 Mg Syringekit, 3.75 MG IM q28 days, #12 MG Prov:URMILA PUGA [employer] WORKER-BC, ONC 12/20/16 Reported Medications Acetaminophen (TYLENOL) 325 Mg Tablet, 325 MG PO PRN, TAB 12/19/16 Discontinued Reported Medications Anastrozole (ARIMIDEX) 1 Mg Tablet, 1 MG PO DAILY 12/19/16 Discontinued Scripts Apixaban (ELIQUIS) 5 Mg Tablet, 5 MG PO BID for 30 Days, #60 TAB 5 Refills Take 5mg bid after completion of 10mg bid x 7 days Prov:URMILA PUGA [employer] WORKER-BC, ONC 01/29/17 Past Medical/Surgical History Patient has a past medical history of asthma, diabetes, endometrial sarcoma. Patient has no pertinent surgical history. Hx Smoking: Yes Smoking Status: Former Smoker Exposure to Second Hand Smoke?: Yes Hx Substance Use Disorder: No Hx Alcohol Use: No Constitutional Vital Sign - Last 24 Hours 12/28/17 20:47 Temp 98.6 Pulse 105 Resp 16 B/P (MAP) 133/103 Pulse Ox 98 O2 Delivery Room Air Physical Exam General appearance: Alert no distress. Respiratory: Chest is non tender, lungs are clear to auscultation. Cardiac: Regular rate and rhythm. Skin: Patient does have what appears to be small abrasions to the chin. There is no drainage noted. She does have some tenderness to palpation. No erythema was noted around it. I also examined her rectum. There is no abrasions around the rectum like it was on the chin. DIFFERENTIAL DIAGNOSIS: After history and physical exam differential diagnosis was considered for cellulitis, abrasion, parasitic infection, scabies Medical Decision Making ED Course/Re-evaluation ED Course Patient was admitted to an exam room, history of physical were obtained. Differential diagnoses were considered. On examination lungs are clear, heart is regular, abdomen is soft nontender. Patient does have some abrasions to the front of the chin, they're tender to touch. There is no drainage noted. I did examine the rectum, there is no abrasions, there is no abnormality noted. With patient being concerned about possible parasite stool go ahead and have her collect and O&P at home. She was given an order for that. Since she had improvement with antibiotic ointment today we will go ahead and switch her to Bactroban 3 times a day for the next 7 days. 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 Due to the patient's concern about possible scabies we'll also go ahead and have her treated herself with permethrin. Prescription was sent into her pharmacy. We will go ahead and discharge patient home. She is to follow-up with the [facility] later this week for reevaluation. Patient verbalized understanding and agreement with plan. Decision to Disposition Date: Dec 28, 2017 Decision to Disposition Time: 21:18 Depart Departure Latest Vital Signs Vital Signs Date Time Temp Pulse Resp B/P (MAP) Pulse Ox O2 Delivery O2 Flow Rate FiO2 12/28/17 20:47 98.6 105 16 133/103 98 Room Air Impression: Primary Impression: Abrasion of face Additional Impression: Seedy stool Condition: Improved Disposition: HOME OR SELF-CARE Referrals: LANA MCCORMICK MD (PCP) New Scripts Permethrin (PERMETHRIN) 60 Gm Cream..g. 60 GM TP ONCE, #1 TUB Prov: GIGI JOHNSON 12/28/17 Mupirocin Calcium (BACTROBAN) 15 Gm Cream..g. 1 CLAIRE TP TID for 7 Days, #15 GM Prov: GIGI JOHNSON 12/28/17 Patient Instructions: Abrasion,Face Additional Instructions: Keep hands clean. You may use lotion especially thick lotion like [place] to help moisturize your skin. We will call with the results of the O&P study of your stool. Continue with your current medications. Apply the Permethrin on tomorrow night and cover skin completely, nothing internal. Follow up with the [facility] this week. Return to the ER if condition worsens. Problem Qualifiers Primary Impression: Abrasion of face Encounter type: initial encounter Qualified Codes: S00.81XA - Abrasion of other part of head, initial encounter GIGI JOHNSON Dec 28, 2017 20:48
[2017-12-28] MEDS ORDERED: PERM60CR17 TP (21:15)
[2017-12-28] MEDS ORDERED: MUPI15CR10 TP (21:15)
[2017-12-28] MEDS ORDERED: MUPIROCIN 2% OINT 22 GM TUBE TP ONE (21:30)
== END 2017-12-28 21:32 | disposition home or self-care (01) ==
LOC: ER 20:54
DX: S00.81XA Abrasion of other part of head, initial encounter (principal)
CPT/HCPCS: 87177; 99282

== ENCOUNTER 2018-01-27 00:35 | Emergency (ER) | payer SELFPAY ==
[~2018-01-27 00:35] MED LIST changes: +MUPI15CR10 TP; +PERM60CR17 TP
[2018-01-27 00:41] VITALS: BP 121/78
--- NOTE | 2018-01-27 00:45 | ER Report ---
History and Physical Time Seen By : 00:46 Hx. of Stated Complaint: pT STATES SINCE GOING OUT TO DINNER THAT SHE HAS BEEN "VIOLENTLY ILL" HPI/ROS CHIEF COMPLAINT: vomiting HISTORY OF PRESENT ILLNESS: This is a 47 year old female. She went to eat at [employer], and got violently ill afterward. Vomiting a lot which is now better. Thinks it was food poisoning. ate a burger as well, and did not feel well. No abdominal pain. Had felt burning in both flanks as well. No dysuria. No diarrhea. No cough or trouble breathing. No chest pain or palpitations. Denies any musculoskeletal or back pain. Allergies: Coded Allergies: No Known Drug Allergies (Unverified , 03/10/17) Home Meds Reported Medications Acetaminophen (TYLENOL) 325 Mg Tablet, 325 MG PO PRN, TAB 12/19/16 Discontinued Scripts Permethrin (PERMETHRIN) 60 Gm Cream..g., 60 GM TP ONCE, #1 TUB Prov:GIGI JOHNSONP 12/28/17 Mupirocin Calcium (BACTROBAN) 15 Gm Cream..g., 1 CLAIRE TP TID for 7 Days, #15 GM Prov:GIGI JOHNSONP 12/28/17 Cholecalciferol (Vitamin D3) (VITAMIN D3) 5,000 Unit Capsule, 5000 UNIT PO DAILY, #90 CAPSULE 0 Refills Prov:LANA MCCORMICK MD 05/08/17 Isopropyl Alcohol (ALCOH-WIPE) 1 Each Towelette, EACH MC DAILY, #4 3 Refills Prov:LANA MCCORMICK MD 04/28/17 Blood Sugar Diagnostic (GLUCOSE TEST STRIP) 1 Each Strip, 4 EACH MC DAILY, #360 STRIP 3 Refills Prov:LANA MCCORMICK MD 04/28/17 Syringe & Needle,Insulin,1 Ml (INSULIN SYRINGE) 1 Each Disp.syrin, EACH MC DAILY, #4 3 Refills Prov:LANA MCCORMICK MD 04/28/17 Insulin Regular, Human (NOVOLIN R) 100 Unit/1 Ml Vial, 100 UNIT IJ SS, #3 VIAL 3 Refills Prov:LANA MCCORMICK MD 04/24/17 Nph, Human Insulin Isophane (NOVOLIN N) 100 Unit/1 Ml Vial, 100 UNIT SQ DIRECTED, #6 VIAL 3 Refills 25 units QAM 20 units QPM Prov:LANA MCCORMICK MD 04/24/17 Ferrous Sulfate (FERROUS SULFATE) 325 Mg Tablet, 325 MG PO BID for anemia, #60 TAB 6 Refills Prov:URMILA PUGA SENIOR LIVING SALES COUNSELOR-BC, ONC 03/07/17 Leuprolide Acet 3.75 Mg Qmonth (LUPRON DEPOT 3.75 MG QMONTH) 3.75 Mg Syringekit, 3.75 MG IM q28 days, #12 MG Prov:URMILA PUGA SENIOR LIVING SALES COUNSELOR-BC, ONC 12/20/16 Reviewed Nurses Notes: Yes Hx Smoking: Yes Smoking Status: Former Smoker Exposure to Second Hand Smoke?: Yes Hx Substance Use Disorder: No Hx Alcohol Use: No Constitutional Vital Sign - Last 24 Hours 01/27/18 00:41 Temp 98.1 Pulse 99 Resp 14 B/P (MAP) 121/78 Pulse Ox 96 O2 Delivery Room Air Intake and Output 01/26/18 01/26/18 01/27/18 14:58 22:58 06:58 Intake Total 1000 ml Balance 1000 ml Physical Exam General Appearance: The patient is alert. Feeling a little weak. Mild distress because of the nausea and vomiting. Eyes: Pupils are equal, round. No pallor, injection or icterus. ENT: Mucous membranes are moist. Normal oral mucosa. Posterior oropharynx is normal. Neck: Supple and non tender. Respiratory: Lungs are clear to auscultation. Cardiovascular: Regular rate and rhythm. No murmurs, gallops or rubs. Normal capillary refill. Gastrointestinal: Abdomen is soft, nontender. Nondistended. No masses or organomegaly. Normal active bowel sounds. No costovertebral angle tenderness wit h percussion. Neurological: Alert and oriented x3. Skin: Warm, mildly diaphoretic. Musculoskeletal: Extremities are nontender. No pain in the back. DIFFERENTIAL DIAGNOSIS: After history and physical exam, differential diagnosis was considered for vomiting, likely food poisoning could be other causes such as gastroenteritis. We'll check labs and abdomen three-view. Medical Decision Making Data Points Result Diagram: 01/27/1812201/27/18122 Laboratory Hematology Test 01/27/18 00:41 01/27/18 01:23 Urine Color Yellow Urine Clarity Clear Urine pH 7.0 pH (4.8-9.5) Urine Specific [place] 1.021 Urine Protein Negative mg/dL (NEGATIVE) Urine Glucose (UA) Negative mg/dL (NEGATIVE) Urine Ketones Negative mg/dL (NEGATIVE) Urine Blood Negative (NEGATIVE) Urine Nitrite Negative (NEGATIVE) Urine Bilirubin Negative (NEGATIVE) Urine Urobilinogen 2.0 mg/dL (0.2-1.9) Urine Leukocyte Esterase Negative (NEGATIVE) Urine RBC <1 /HPF (0-2/HPF) Urine WBC 1 /HPF (0-5/HPF) Urine Squamous Epithelial Cells Many /LPF (</=FEW) Urine Bacteria Negative /HPF (NONE-FEW) Urine Hyaline Casts Few /LPF (NONE-FEW) Urine Mucus None /HPF (NONE-FEW) Red Blood Count 3.85 M/uL (4.17-5.56) Mean Corpuscular Volume 61.4 fL (80.0-96.0) Mean Corpuscular Hemoglobin 18.1 pg (26.0-33.0) Mean Corpuscular Hemoglobin Concent 29.5 g/dL (32.0-36.0) Red Cell Distribution Width 18.1 % (11.5-14.5) Mean Platelet Volume 9.0 fL (7.2-11.1) Neutrophils (%) (Auto) 68.1 % (39.4-72.5) Lymphocytes (%) (Auto) 25.8 % (17.6-49.6) Monocytes (%) (Auto) 4.6 % (4.1-12.4) Eosinophils (%) (Auto) 0.7 % (0.4-6.7) Basophils (%) (Auto) 0.8 % (0.3-1.4) Nucleated RBC Relative Count (auto) 0.0 /100WBC Neutrophils # (Auto) 5.0 K/uL (2.0-7.4) Lymphocytes # (Auto) 1.9 K/uL (1.3-3.6) Monocytes # (Auto) 0.3 K/uL (0.3-1.0) Eosinophils # (Auto) 0.0 K/uL (0.0-0.5) Basophils # (Auto) 0.1 K/uL (0.0-0.1) Nucleated RBC Absolute Count (auto) 0.00 K/uL Peripheral Blood Smear Yes Y/N Sodium Level 138 mmol/L (137-145) Potassium Level 4.0 mmol/L (3.5-5.0) Chloride Level 108 mmol/L (98-107) Carbon Dioxide Level 22 mmol/L (22-31) Blood Urea Nitrogen 11 mg/dl (7-18) Creatinine 0.90 mg/dl (0.52-1.04) Glomerular Filtration Rate Calc > 60.0 Random Glucose 174 mg/dl (75-110) Calcium Level 8.5 mg/dl (8.4-10.2) Total Bilirubin 0.3 mg/dl (0.2-1.3) Aspartate Amino Transf (AST/SGOT) 13 U/L (0-35) Alanine Aminotransferase (ALT/SGPT) 17 U/L (0-56) Alkaline Phosphatase 88 U/L (0-126) Total Protein 7.8 g/dl (6.3-8.2) Albumin 3.6 g/dl (3.5-5.0) Amylase Level 79 U/L (0-110) Lipase 84 U/L (23-300) Human Chorionic Gonadotropin, Qual Negative (NEGATIVE) Chemistry Test 01/27/18 00:41 01/27/18 01:23 Urine Color Yellow Urine Clarity Clear Urine pH 7.0 pH (4.8-9.5) Urine Specific [place] 1.021 Urine Protein Negative mg/dL (NEGATIVE) Urine Glucose (UA) Negative mg/dL (NEGATIVE) Urine Ketones Negative mg/dL (NEGATIVE) Urine Blood Negative (NEGATIVE) Urine Nitrite Negative (NEGATIVE) Urine Bilirubin Negative (NEGATIVE) Urine Urobilinogen 2.0 mg/dL (0.2-1.9) Urine Leukocyte Esterase Negative (NEGATIVE) Urine RBC <1 /HPF (0-2/HPF) Urine WBC 1 /HPF (0-5/HPF) Urine Squamous Epithelial Cells Many /LPF (</=FEW) Urine Bacteria Negative /HPF (NONE-FEW) Urine Hyaline Casts Few /LPF (NONE-FEW) Urine Mucus None /HPF (NONE-FEW) White Blood Count 7.4 k/uL (4.5-11.0) Red Blood Count 3.85 M/uL (4.17-5.56) Hemoglobin 7.0 g/dL (12.0-16.0) Hematocrit 23.7 % (34.0-47.0) Mean Corpuscular Volume 61.4 fL (80.0-96.0) Mean Corpuscular Hemoglobin 18.1 pg (26.0-33.0) Mean Corpuscular Hemoglobin Concent 29.5 g/dL (32.0-36.0) Red Cell Distribution Width 18.1 % (11.5-14.5) Platelet Count 357 K/uL (150-450) Mean Platelet Volume 9.0 fL (7.2-11.1) Neutrophils (%) (Auto) 68.1 % (39.4-72.5) Lymphocytes (%) (Auto) 25.8 % (17.6-49.6) Monocytes (%) (Auto) 4.6 % (4.1-12.4) Eosinophils (%) (Auto) 0.7 % (0.4-6.7) Basophils (%) (Auto) 0.8 % (0.3-1.4) Nucleated RBC Relative Count (auto) 0.0 /100WBC Neutrophils # (Auto) 5.0 K/uL (2.0-7.4) Lymphocytes # (Auto) 1.9 K/uL (1.3-3.6) Monocytes # (Auto) 0.3 K/uL (0.3-1.0) Eosinophils # (Auto) 0.0 K/uL (0.0-0.5) Basophils # (Auto) 0.1 K/uL (0.0-0.1) Nucleated RBC Absolute Count (auto) 0.00 K/uL Peripheral Blood Smear Yes Y/N Glomerular Filtration Rate Calc > 60.0 Calcium Level 8.5 mg/dl (8.4-10.2) Total Bilirubin 0.3 mg/dl (0.2-1.3) Aspartate Amino Transf (AST/SGOT) 13 U/L (0-35) Alanine Aminotransferase (ALT/SGPT) 17 U/L (0-56) Alkaline Phosphatase 88 U/L (0-126) Total Protein 7.8 g/dl (6.3-8.2) Albumin 3.6 g/dl (3.5-5.0) Amylase Level 79 U/L (0-110) Lipase 84 U/L (23-300) Human Chorionic Gonadotropin, Qual Negative (NEGATIVE) Urinalysis Test 01/27/18 00:41 Urine Color Yellow Urine Clarity Clear Urine pH 7.0 pH (4.8-9.5) Urine Specific [place] 1.021 Urine Protein Negative mg/dL (NEGATIVE) Urine Glucose (UA) Negative mg/dL (NEGATIVE) Urine Ketones Negative mg/dL (NEGATIVE) Urine Blood Negative (NEGATIVE) Urine Nitrite Negative (NEGATIVE) Urine Bilirubin Negative (NEGATIVE) Urine Urobilinogen 2.0 mg/dL (0.2-1.9) Urine Leukocyte Esterase Negative (NEGATIVE) Urine RBC <1 /HPF (0-2/HPF) Urine WBC 1 /HPF (0-5/HPF) Urine Squamous Epithelial Cells Many /LPF (</=FEW) Urine Bacteria Negative /HPF (NONE-FEW) Urine Hyaline Casts Few /LPF (NONE-FEW) Urine Mucus None /HPF (NONE-FEW) EKG/Imaging Imaging Examination: PA chest with abdomen obstructive series HISTORY: Abdominal pain and vomiting. History of endometrial cancer. COMPARISON: Prior chest x-ray 11/17/2016 is reviewed. FINDINGS: PA view of the chest demonstrates multiple bilateral pulmonary nodules. Since the prior study, these nodules are more numerous and multiple nodules appear larger in size. Findings are compatible with progression of pulmonary metastatic disease. No consolidation or air bronchograms. No effusion or pneumothorax. Heart size and mediastinal contours are normal. Supine and upright views of the abdomen demonstrate a normal bowel gas pattern. No free air or air-fluid levels are seen. A calcification is seen within the left upper quadrant which was noted to be within the spleen on a prior CT scan. A calcification is seen within the pelvis which was also present on a prior CT scan. Degenerative changes involve the lumbar spine. IMPRESSION: 1. Progression of pulmonary metastatic disease. 2. Normal bowel gas pattern. 3. 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 Report Dictated By: Carloz Pantoja at 01/27/2018 2:05 AM ED Course/Re-evaluation Clinical Indication for ER IV: Hydration, IV Access ED Course The patient feels much better after IV fluids and Zofran. Labs did show the significant anemia that is present. She has a history of anemia however this was when she was on Eliquis and having very heavy periods. She did have a heavy period last month. She is not surprised that her blood count is low. We talked about doing a transfusion and admitting her to the hospital however she prefers not to do this at this time and instead would just like to follow up and try treating this with diet. I did talk to her about the significant nature of it being so low, and she understands from past episodes of this and would like to not be admitted to the hospital. Part of this is financial reasons. She also had changes on her x-ray consistent with increasing nodularity in the lungs likely due to metastatic disease from her cancer. She says that with her disability, she lost all insurance and ability to pay for cancer treatment so n othing was done. She elected not to have a hysterectomy because of this. I did offer further workup to find out what was going on with the cancer in the nodularity in this would entail doing a CT scan of the chest and possibly doing a CT scan of the abdomen, pelvis, and the head as well. She prefers not to do this at this time siting reasons of financially not being able to afford it and then doing it and having nothing else to do similar to what happened last time. She would like to have this information forward to the cancer Center and see what their recommendations are. We provided information for her to follow-up with either the [facility] or the [facility]. He u nderstands that she can return at any time as well for further treatment and workup. Did remind her that any delays in workup could make it less likely that the cancer is treatable, and certainly with the changes on the x-ray we would worry that it was already at that stage. Decision to Disposition Date: Jan 27, 2018 Decision to Disposition Time: 02:49 Depart Departure Latest Vital Signs Vital Signs Date Time Temp Pulse Resp B/P (MAP) Pulse Ox O2 Delivery O2 Flow Rate FiO2 01/27/18 00:41 98.1 99 14 121/78 96 Room Air Impression: Primary Impression: Anemia Additional Impressions: Cancer with pulmonary metastases Food poisoning Endometrial stromal sarcoma Condition: Improved Disposition: HOME OR SELF-CARE Referrals: LANA MCCORMICK MD (PCP) Patient Instructions: Anemia (ED), Food Poisoning (ED) Additional Instructions: Your nausea and vomiting tonight appear to have been due to food poisoning as both you and your had symptoms. This could also have been caused by a virus. These symptoms can last for about 24-48 hours. This should resolve without any further problems. If you do have further problems you can follow-up with us at the ER or with the [facility] or the [facility]. As part of your work-up we did find that your blood count was low. It is low enough that we would consider doing a blood transfusion and admission to the hospital. Because you are electing not to do this, we recommend follow-up with the [facility] or the [facility] or other primary care provider for re-evaluation. You can always return to the hospital as well for further evaluation and treatment. Especially if you are having shortness of breath or chest pain. Your x-ray tonight shows worsening of the pulmonary nodules seen in the past. It is felt by the radiologist that this is worsening spread of your cancer. Further evaluation could be done with a CT scan as we talked about this morning. We will get your information to the Cancer Center in the morning as you requested to see if they have any recommendations for you. You can always return for further evaluation as we discussed. Problem Qualifiers Primary Impression: Anemia Anemia type: iron deficiency Iron deficiency anemia type: chronic blood loss Qualified Codes: D50.0 - Iron deficiency anemia secondary to blood loss (chronic) Additional Impressions: Cancer with pulmonary metastases Laterality: unspecified laterality Qualified Codes: C78.00 - Secondary malignant neoplasm of unspecified lung Food poisoning Encounter type: initial encounter Injury intent: accidental or unintentional Qualified Codes: T62.91XA - Toxic effect of unspecified noxious substance eaten as food, accidental (unintentional), initial encounter TAMMIE FARMER MD Jan 27, 2018 00:45
[2018-01-27] MEDS ORDERED: NS(*) 0.9% 1000 ML BAG 1,000 ML IV ONE (00:50)
[2018-01-27] MEDS ORDERED: ONDANSETRON 4 MG/2 ML VIAL IVP ONE (00:50)
[2018-01-27 01:42] LABS: PLATELET COUNT, AUTOMATED 357 K/uL (150-450)
--- NOTE | 2018-01-27 02:17 | RADIOLOGY IMAGING REPORT ---
FACILITY: [facility] PATIENT NAME: Keerthi Vasquez : 1970 MR: [id number] V: [id number] EXAM DATE: ORDERING PHYSICIAN: TAMMIE FARMER TECHNOLOGIST: Location: [facility] [place] Patient: Keerthi Vasquez : 1970 Visit/Account:[id number] Date of Sevice: 01/27/2018 Examination: PA chest with abdomen obstructive series HISTORY: Abdominal pain and vomiting. History of endometrial cancer. COMPARISON: Prior chest x-ray 11/17/2016 is reviewed. FINDINGS: PA view of the chest demonstrates multiple bilateral pulmonary nodules. Since the prior study, these nodules are more numerous and multiple nodules appear larger in size. Findings are compatible with pr ogression of pulmonary metastatic disease. No consolidation or air bronchograms. No effusion or pneum othorax. Heart size and mediastinal contours are normal. Supine and upright views of the abdomen demonstrate a normal bowel gas pattern. No free air or air-fl uid levels are seen. A calcification is seen within the left upper quadrant which was noted to be wit hin the spleen on a prior CT scan. A calcification is seen within the pelvis which was also present o n a prior CT scan. Degenerative changes involve the lumbar spine. IMPRESSION: 1. Progression of pulmonary metastatic disease. 2. Normal bowel gas pattern. 3. 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 Report Dictated By: Carloz Pantoja at 01/27/2018 2:05 AM Report E-Signed By: Carloz Pantoja at 01/27/2018 2:12 AM WSN:[id number]
== END 2018-01-27 03:10 | disposition home or self-care (01) ==
LOC: ER 01:38
DX: D50.0 Iron deficiency anemia secondary to blood loss (chronic) (principal); C78.00 Secondary malignant neoplasm of unspecified lung; T62.91XA Toxic effect of unspecified noxious substance eaten as food, accidental (unintentional), initial encounter
CPT/HCPCS: 74022; 81001; 82150; 83690; 84703; 85025; 96361; 96374; J2405; J7030; 82040; 82247; 82310; 82374; 82435; 82565; 82947; 84075; 84132; 84155; 84295; 84450; 84460; 84520; 99284

== ENCOUNTER → 2018-02-09 | Outpatient (REF) | payer SELFPAY | LOC: ZZSENDIN 12:38 | PROVIDERS: ATTEND Emergency Medicine | DX: B83.9 Helminthiasis, unspecified (principal) ==

== ENCOUNTER 2018-04-30 16:00 | Outpatient (RCR) | payer SELFPAY ==
--- NOTE | 2017-08-01 15:04 | NUR ---
LAte entry - some of the following information has occured over the last several months, but was not documented at the time. OMAR requested additional gas cards to be sent to the pt on 07/11/17. As of 07/30/17 the pt had not yet received any in the mail so SW notified Ese Amanda. Around the first of May the pt contacted OMAR to notify her that she no longer had medicaid coverage and wanted to find out why that was. SW and pt called [place] Medicaid and spoke with a rep over the phone. The rep indicated the pt lost coverage when her Social Security switched from being paid through SSI to SSDI. The rep indicated there was a program called Employed Individuals with a disabilities which she could potentially qualify for if she were working. At that time the pt was not earning an income but was "registered" with a temporary agency called [employer] and was available to work at any time. OMAR obtained a letter from the [employer] regional environmental manager with this information. This letter was submitted along with SSDI income information with the application. The application was submitted on 06/20/17 via the email dropbox. On 06/30/17 SW rec'd a request from pt to verify application was submitted. SW forwarded pt the automated email response. At some point in between 06/30/17 and 07/31/17 the pt contacted OMAR to find out about applicaiton status, SW contacted [place] who indicated they were "waiting to hear back from the state" about the specifics on a date (rep could not tell SW what was needed). OMAR forwarded this information on to the pt. On 07/31/17 OMAR rec'd a follow up phone call from pt who stated she had not yet heard from Medicaid. OMAR again contacted medicaid and learned they were still waiting on the information from the state, however the rep looked further into the case and discovered the date they needed was provided on the paperwork that was submitted alongside the application. However, after this was done the rep stated that since the pt was not earning any income besides social security that she did not qualify for the [place] program, even though she was registered with [employer]. OMAR attempted to call the pt to notify her of this information but had to leave a message. Today - 08/01/17 OMAR had a message from the pt indicating she was disappointed about the lack of coverage because she needed to get her port out on the coming friday. SW returned the message. Pt further shared that she did not feel like she was being supported well enough and that she felt that all the trouble she was experiencing was being done intentionally. She added she felt like the only trouble we went through to "save her life" was only to set her up for failure. The pt was very dissatisfied with her circumstances and SW ability to help her. SW scheduled an appointment with the pt on friday08/04/17 and will have supervisor carton and can supply present to help brainstorm the problem. If pt is no longer willing to work with SW under the circumstances, SW will refer to a [facility] SW.
--- NOTE | 2017-08-04 14:27 | NUR ---
Pt came in today to visit in person about her frustrations. Also present was Jana Cast, Director. The pt indicated she felt like she was falling through the cracks because she did not qualify for Medicaid or Medicare at this time. However, the pt stated she did have work lined up in [place] starting in August. SW encouraged the pt to reapply for Medicaid after she started work so she could show her income and potentially qualify for the Employed Individuals with Disabilities program. Pt was agreeable and will send information as soon as she starts receiving checks. SW also encouraged the pt to reapply for the [facility] Financial Assistance program to help cover her for her port removal surgery. Pt was also agreeable and completed the paper portion of the application. SW will wait to get the pt's income documentation before submitting the application.
--- NOTE | 2017-08-06 14:01 | NUR ---
Pt emailed information needed for the [facility] FA. OMAR will still need tax return and bank statements before we can submit the application. Addendum: 08/06/17 at 1402 by JESSICA MENDOZA LCSW SW notified pt of this need via email on 08/05/17 and voicemail on 08/06/17.
[2018-02-04 11:38] VITALS: BP 130/70
--- NOTE | 2018-02-04 21:23 | ONCOLOGY FOLLOW UP NOTE ---
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 HISTORY OF PRESENT ILLNESS Patient is a 47-year-old female who was seen today in followup. She was last seen in our office on 03/05/17. At that time, she was receiving both Lupron and Anastrozole with some decrease in the pulmonary metastases. However, due to insurance, financial, and social reasons, she has not been taking this for the past 10 to 12 months. She was seen in the Emergency Room on 01/27/18 with nausea, vomiting, and abdominal pain. Hemoglobin at that time was 7.0. She notes menorrhagia lasting for at least 10 days every month. She also complains of some loose stools. She is fatigued. She is no longer smoking cigarettes, but instead smoking cigars. She is here to reestablish care. MEDICAL HISTORY 1. Metastatic low-grade endometrial stromal sarcoma. 2. Type 2 diabetes. 3. Asthma. 4. Pulmonary embolism. SURGICAL HISTORY 1. Port placement. FAMILY HISTORY Unremarkable for malignancy. SOCIAL HISTORY Patient is single. She is accompanied by her boyfriend. She is not working. She smokes cigarettes for five days and recently switched to cigars. She does not drink. There is no history of illicit drug use. MEDICATIONS Tylenol p.r.n. ALLERGIES No known drug allergies. REVIEW OF SYSTEMS A 12-point review of systems is performed and is negative except as stated above. PHYSICAL EXAMINATION VITAL SIGNS: Blood pressure 130/70, pulse 92, R 16, temp 98.3, O2 sat 97%. GENERAL: Patient is a well-developed, well-nourished female in no acute distress. HEAD: Normocephalic, atraumatic. EYES: Sclerae anicteric. MOUTH: Moist mucous membranes. No lesions. NECK: Supple. No palpable adenopathy. CARDIOVASCULAR: Heart rate regular with mild tachycardia. No murmur, S3, or S4. LUNGS: Slightly diminished, but clear bilaterally. EXTREMITIES: No edema. NEUROLOGIC: Nonfocal. LABORATORIES CBC today reveals a WBC of 6.3, hemoglobin 7.2, hematocrit 25.5, platelets 243,000. CMP and iron studies are pending. IMPRESSION AND PLAN The patient is a 47-year-old female with metastatic low-grade endometrial stromal sarcoma. 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 She previously had been treated with Lupron and Anastrozole, but has not been taking these for approximately 10 to 12 months. She presents with significant anemia and would like to reestablish care. 1. Metastatic low-grade endometrial stromal sarcoma. We reviewed her history. Abdominal x-ray done in the ER on 01/27/18 showed progression of pulmonary metastatic disease compared to an x-ray in October 2016. She has not had a CT scan since 01/29/17. This will be repeated now to reassess her current status. 2. Gynecology. Significant menorrhagia, lasts approximately 10 days and occurs every three to six weeks. Hemoglobin today is 7.2. She is referred to Dr. Al for further evaluation. 3. Anemia. Hemoglobin today is 7.2. Iron studies are pending. I suspect she may need intravenous Venofer, which will be arranged based on these labs. 4. Social. Patient has had significant social and financial issues impeding her care. Our social media sr strategy manager, Ashley, met with her today. We will work on patient assistance for Lupron and Anastrozole as well as a CT scan and Venofer if indicated. 5. Follow up in two weeks for continued care, earlier if there is a problem. CC: [facility] ATTN: Malinda MCKEON
--- NOTE | 2018-02-05 15:11 | NUR ---
SW assisted pt with completion of [facility] financial assistance application. SW submitted the application to Mary Carmen Morales. SW also assisted the pt with completion and submission of Iron (Venofer) patient assistance program and Lupron INjection patient assistance programs.
[2018-02-20 13:30] VITALS: BP 111/70
[2018-02-20] MEDS: LIDOCAINE/SOD BICARB 8.4% SYR ID PRN (14:23)
[2018-02-20] MEDS: NS(*) 0.9% 100 ML BAG 100 ML IVPB PRN (14:24)
[2018-02-20 14:49] VITALS: BP 110/78
--- NOTE | 2018-02-20 16:41 | ONCOLOGY FOLLOW UP NOTE ---
EVENT DATE: February 20, 2018 CHIEF COMPLAINT Followup for metastatic low-grade endometrial stromal sarcoma and iron deficiency anemia. HISTORY OF PRESENT ILLNESS Patient is a 47-year-old female who was seen today to initiate treatment with Venofer for recently diagnosed iron deficiency anemia. She was seen in early January and had not been seen in our office since February 2017. At that time, she was taking Lupron and anastrozole with some decrease in the known pulmonary metastases. However, due to insurance, financial, and social reasons, she had not been taking it for the past 10 to 12 months. She was seen in the Emergency Room and noted to have a hemoglobin of 7.0. She also had significant menorrhagia, lasting at least 10 days every month. Workup revealed iron deficiency. She is fatigued. She has noted less menorrhagia, although is spotting "constantly." She denies any other significant complaints and is anxious to begin treatment again. MEDICAL HISTORY 1. Metastatic low-grade endometrial stromal sarcoma. 2. Type 2 diabetes. 3. Asthma. 4. Pulmonary embolism. SURGICAL HISTORY Port placement. FAMILY HISTORY Unremarkable for malignancy. SOCIAL HISTORY Patient is single. She is accompanied by her boyfriend. She is not working. She smokes cigarettes for five days and recently switched to cigars. She does not drink. There is no history of illicit drug use. MEDICATIONS Tylenol p.r.n. ALLERGIES No known drug allergies. REVIEW OF SYSTEMS A 12-point review of systems is performed and is negative except as stated above. PHYSICAL EXAMINATION VITAL SIGNS: BP 111/70, P 88, R 16, temp 98.0, O2 sat 98%. GENERAL: Patient is a well-developed, well-nourished female in no acute distress. HEAD: Normocephalic, atraumatic. EYES: Sclerae anicteric. MOUTH: Moist mucous membranes. No lesions. NECK: Supple. No adenopathy. LUNGS: Clear bilaterally. CARDIOVASCULAR: Heart rate regular, 88 per minute, without murmur, S3, or S4. EXTREMITIES: No edema. NEUROLOGIC: Nonfocal. LABORATORY CBC was not able to be drawn today due to poor access. CMP is pending. Previous labs on 02/04/18 showed a hemoglobin of 7.2 and a ferritin of 6. IMPRESSION AND PLAN The patient is a 47-year-old female with metastatic low-grade endometrial stromal sarcoma with known metastases to her lungs. She previously had been treated with Lupron and anastrozole, but did not take these for much of 2018. She recently presented with significant iron deficiency anemia. 1. Metastatic low-grade endometrial stromal sarcoma. With patient assistance, she will now begin anastrozole 1 mg daily. She tolerated this well previously. She will also receive Lupron 3.75 mg IM today and every month. She states understanding and is anxious to get started on this. 2. Restaging. She is scheduled for a CT of the chest, abdomen, and pelvis on 03/02/18. Previous abdominal x-ray done in the ER on 01/27/18 showed progressive pulmonary metastatic disease compared to an x-ray in 2017. She understands that a CT would be a better way to look at this. 3. Gynecology. Previously noted significant menorrhagia lasting for 10 days which occurs every three to six weeks. She has an appointment with Dr. Al for evaluation for possible palliative hysterectomy on 03/19/18. 4. Iron deficiency anemia. She was seen in the Emergency Room in early January with a hemoglobin of 7. Ferritin on 02/04/18 was 6 with an iron saturation of 5%. She will receive Venofer 300 mg IV today and again on 03/02/18. 5. Follow up on 03/02/[address] scan and cycle #2 of Venofer. 6. Follow up on 03/09/18 with a CBC and CMP to review results of CT scan. LINDA
--- NOTE | 2018-03-02 08:04 | NUR ---
After several attempts to contact Mary Carmen Morales about the status of the patient's financial assistance application, Mary Carmen did visit today about the patient. She had not yet reviewed the application. Mary Carmen will let SW know about the pt's status today.
[2018-03-02 08:06] VITALS: BP 130/83
[2018-03-02] MEDS: LIDOCAINE/SOD BICARB 8.4% SYR ID PRN (08:15)
--- NOTE | 2018-03-02 11:17 | RADIOLOGY IMAGING REPORT ---
FACILITY: [facility] [place] PATIENT NAME: Keerthi Vasquez : 1970 MR: [id number] V: [id number] EXAM DATE: ORDERING PHYSICIAN: DARSHAN LEVINE TECHNOLOGIST: Location: [facility] Patient: Keerthi Vasquez : 1970 Visit/Account:[id number] Date of Sevice: 03/02/2018 CT CHEST ABDOMEN PELVIS W & W/O HISTORY: Endometrial cancer, restaging ADDITIONAL HISTORY: None. TECHNIQUE: Pre and post administration of IV contrast axial images acquired through the chest abdome n and pelvis during the portal venous phase. Coronal and sagittal reformatting was also performed.Do se Lowering Technique One of the following dose optimization techniques was utilized in the performance of this exam: Autom ated exposure control; adjustment of the mA and/or kV according to the patient's size; or use of an i terative reconstruction technique. Specific details can be referenced in the facility's radiology C T exam operational policy. CONTRAST: 75 mL Isovue-370 COMPARISON: CT chest abdomen pelvis January 29, 2017 FINDINGS: CHEST: Lungs/Pleura: Again noted are extensive bilateral pulmonary metastases. There has been an overall i ncrease in the size of many of the pulmonary masses, several however have slightly decreased in size. There has been an overall increase in the number of metastases as well Mediastinum/lymph nodes: There are two tiny right hilar lymph nodes. No pathologically enlarged hil ar or mediastinal adenopathy is appreciated Heart/vessels: Negative. Bones/soft tissues: Gentle S-shaped scoliosis of the thoracolumbar spine no aggressive appearing bon e lesions are seen ABDOMEN AND PELVIS: Hepatobiliary: Negative. Spleen: 7 mm calcification in the medial aspect of the spleen again noted Pancreas: There is a bulbous appearance to the tail of the pancreas appear slightly more prominent w hen compared the prior study. This may simply represent a lobule of pancreatic tissue however furthe r evaluation with ultrasound or MR may be helpful Adrenals: Negative. Kidneys ureters and bladder : Subcentimeter cortical hypodensity midpole the left kidney again seen. There is mild fullness of the renal pelves and ureters bilaterally which is slightly increased when compared the prior study. This may be secondary to extrinsic compression from the large pelvic mass described below Genitalia: Uterus is enlarged and extremely heterogeneous. The large hypoattenuating mass projecting from the posterior superior aspect of the uterus has increased in size now measuring approximately 1 0.1 x 8.9 x 6.2 cm, previously 7.7 x 3.2 x 4.0 cm the additional mass projecting from the anterior [place] perior aspect of the uterus has also increased in size and now measures approximately 5.6 3.6 x 3.1 c m previously 3.1 x 2.6 x 5.1 cm GI: There is extrinsic mass effect on the left side of the sigmoid colon which is displaced towards the right by the large pelvic mass although there is no evidence of bowel obstruction . Vessels/spaces/nodes: There is a 1.3 x 0.8 cm left periaortic lymph node previously measuring 1.2 x 0.7 cm. Several other tiny left periaortic lymph nodes. There is a 1.4 x 1.2 cm left external iliac lymph node previously measuring 1.2 x 0.8 cm.. There is a trace amount of free pelvic fluid Bones/soft tissues: There is a small umbilical hernia containing fat. No aggressive appearing bone lesions are seen Additional findings: None pertinent. IMPRESSION: Increasing pulmonary metastases There is a bulbous appearance to the tail the pancreas appear slightly more prominent when compared t he prior study. This may simply represent a lobule of pancreatic tissue however further evaluation w ith ultrasound or MR may be of value Mild fullness of the renal pelves and ureters bilaterally which is slightly increased when compared t he prior study. This may be secondary to extrinsic compression from the large pelvic mass. Uterus is enlarged and heterogeneous. The p eviously described hypoattenuating masses projecting fro m the uterus has increased in size.There is extrinsic mass effect on the sigmoid colon which is displ aced towards the right by the large pelvic mass although no evidence of bowel obstruction Retroperitoneal adenopathy slightly increased Report Dictated By: Lolis Colón MD at 03/02/2018 9:53 AM Report E-Signed By: Lolis Colón MD at 03/02/2018 11:12 AM WSN:[id number]
[2018-03-09 09:14] VITALS: BP 122/67
[2018-03-09] MEDS: LIDOCAINE/SOD BICARB 8.4% SYR ID PRN (09:56)
[2018-03-09] MEDS: NS(*) 0.9% 100 ML BAG 100 ML IVPB PRN (09:56)
[2018-03-09] MEDS: IRON SUCROSE 100 MG/5 ML VIAL 300 MG in NS(*) 0.9% 250 ML BAG 250 ML IVPB PRN (09:57)
[2018-03-09 10:12] LABS: PLATELET COUNT, AUTOMATED 307 K/uL (150-450)
[2018-03-09 11:09] VITALS: BP 122/92
--- NOTE | 2018-03-13 14:45 | NUR ---
Sw rec'd information today that the patient was approved by [facility] financial assistance for her hysterectomy, 10 iron infusions and all her lupron injections. OMAR still attempting to get replacement on the iron and lupron through the patient assistance programs, however neither of these programs have finished processing the applications that were submitted a month ago.
[2018-03-13] MEDS: IRON SUCROSE 100 MG/5 ML VIAL 300 MG in NS(*) 0.9% 250 ML BAG 250 ML IVPB PRN (14:56)
[2018-03-13] MEDS: NS(*) 0.9% 100 ML BAG 100 ML IVPB PRN (14:56)
[2018-03-13] MEDS: LIDOCAINE/SOD BICARB 8.4% SYR ID PRN (14:56)
[2018-03-13 14:59] VITALS: BP 121/81
[2018-03-13 16:37] VITALS: BP 107/69
--- NOTE | 2018-03-17 03:00 | ONCOLOGY FOLLOW UP NOTE ---
EVENT DATE: March 13, 2018 CHIEF COMPLAINT Followup for metastatic low-grade endometrial stromal sarcoma and iron- deficiency anemia. HISTORY OF PRESENT ILLNESS Patient is a 47-year-old female who was seen today in followup. She has received one dose of IV Venofer and will receive her second dose today. She is doing fairly well. She notes that she is still spotting, but vaginal bleeding has improved significantly. She has an appointment to see Dr. Al on 03/19/18. She continues on anastrazole, which she is tolerating fairly well. She has had some mild nausea but is conscious of making sure she eats before she takes this. She will receive her next Lupron injection on 03/25/18. Today we reviewed her recent restaging CT scan. MEDICAL HISTORY 1. Metastatic low-grade endometrial stromal sarcoma. 2. Type 2 diabetes. 3. Asthma. 4. Pulmonary embolism. SURGICAL HISTORY Port placement. FAMILY HISTORY Unremarkable for malignancy. SOCIAL HISTORY Patient is single. She lives with her boyfriend. She is not working. She smoked cigarettes for five years and recently switched to cigars. She does not drink. There is no history of illicit drug use. MEDICATIONS Tylenol p.r.n. ALLERGIES No known drug allergies. REVIEW OF SYSTEMS A 12-point review of systems is performed and is negative except as stated above. PHYSICAL EXAMINATION VITAL SIGNS: Blood pressure 121/81, pulse 88, respirations 16, temp 98.8, O2 sat 97%. GENERAL: Patient is a well-developed, well-nourished female in no acute distress. HEAD: Normocephalic, atraumatic. EYES: Sclerae anicteric. MOUTH: Moist mucous membranes. NECK: Supple. No palpable adenopathy. LUNGS: Clear bilaterally. CARDIOVASCULAR: Heart rate regular, 88 per minute, without murmur, S3, or S4. EXTREMITIES: No edema. NEUROLOGIC: Nonfocal. LABORATORY CBC on 03/09/18 showed a WBC of 3.9, ANC of 2.2, hemoglobin 8.2, hematocrit 28.6, MCV 62.8, platelets 307,000. Previously noted to have significant iron deficiency with a ferritin of 6 in January 2018. IMPRESSION AND PLAN The patient is a 47-year-old female with metastatic low-grade endometrial stromal sarcoma with known metastases to her lungs. She previously had been treated with Lupron and anastrozole, but did not take these for much of 2018. She recently presented with significant iron-deficiency anemia. 1. Metastatic low-grade endometrial stromal sarcoma. Patient continues on anastrazole 1 mg daily. She received Lupron 3.75 mg intramuscularly on 02/20/18 and will receive her next dose on 03/25/18. She is tolerating this well. She has had some mild nausea associated with the anastrazole, but is conscious of eating before that. 2. Restaging. CT scan on 03/02/18 showed extensive pulmonary metastases that are increasing overall. There is a bulbous appearance to the tail of the pancreas, which appears slightly more prominent. Uterus is enlarged and heterogeneous. The previously described hypoattenuating masses projecting from the uterus have increased in size, with extrinsic mass effect on the sigmoid colon. Retroperitoneal adenopathy is slightly increased. 3. Gynecology. Previously noted significant menorrhagia lasting for 10 days, which occurred every three to six weeks. She now is spotting some, but overall much better. She has an appointment with Dr. Al for evaluation for possible palliative hysterectomy on 03/19/18. 4. Iron deficiency anemia. She was seen in the emergency room in early January with a hemoglobin of 7. Ferritin was 6 with an iron saturation of 5%. She received her first dose of Venofer on 02/20/18 and will receive her second dose today. Hemoglobin has improved from 7.0 to 8.2. Will recheck iron studies in approximately six weeks. 5. Follow up with Dr. Acuna on 03/25/18. She will receive Lupron at that time. CBC and CMP will be checked. MTDD
--- NOTE | 2018-03-19 11:36 | NUR ---
OMAR faxed additional information to [facility] for the Injectafer program per their request.
--- NOTE | 2018-03-19 14:57 | NUR ---
Pt was accepted on the patient assistance program for Lupron [place] through [employer]. SW will notify pharmacy to treat these as proactive orders for the next injection.
--- NOTE | 2018-03-25 07:48 | NUR ---
Pt was approved for assistance for IV iron through the In[employer] IV iron reimbursement program. Approved 03/24/18-03/23/2019. SW will notify the pharmacy of this information.
[2018-03-25 14:24] VITALS: BP 114/71
[2018-03-25 14:54] LABS: PLATELET COUNT, AUTOMATED 229 K/uL (150-450)
--- NOTE | 2018-03-26 10:04 | ONCOLOGY FOLLOW UP NOTE ---
EVENT DATE: March 25, 2018 CHIEF COMPLAINT Followup for iron deficiency anemia and low-grade endometrial stromal sarcoma. HISTORY OF PRESENT ILLNESS Patient is a 47-year-old female who was seen today in followup. She continues on anastrozole, which she is tolerating well. She does have some mild nausea if she does not eat crackers first but feels she is managing this. She continues on Lupron, which she will receive today. She is no longer having menstrual cycles. She received two cycles of Venofer and notes that her fatigue has improved. She was scheduled to meet with Dr. Al to discuss possible palliative hysterectomy but Dr. Al feels she would be better served with a PRE BILLING CLINICIAN oncologist. MEDICAL HISTORY 1. Metastatic low-grade endometrial stromal sarcoma. 2. Type 2 diabetes. 3. Asthma. 4. Pulmonary embolism. SURGICAL HISTORY Port placement. FAMILY HISTORY Unremarkable for malignancy. SOCIAL HISTORY Patient is single. She lives with her boyfriend. She is not working. She smoked cigarettes for five years and recently switched to cigars. She does not drink. There is no history of illicit drug use. MEDICATIONS Tylenol p.r.n. ALLERGIES No known drug allergies. REVIEW OF SYSTEMS A 12-point review of systems is performed and is negative except as stated above. PHYSICAL EXAMINATION VITAL SIGNS: BP 114/71, P 70, R 16, temperature 98.4, O2 sat 96%. GENERAL: Patient is a well-developed, well-nourished female in no acute distress. HEAD: Normocephalic, atraumatic. EYES: Sclerae anicteric. MOUTH: Moist mucous membranes. NECK: Supple. No palpable adenopathy. LUNGS: Clear bilaterally. CARDIOVASCULAR: Heart rate regular, 76 per minute, without murmur, S3, or S4. EXTREMITIES: No edema. NEUROLOGIC: Nonfocal. SKIN: Very dry hands bilaterally, right greater than left. LABORATORY CBC today reveals a WBC of 4.9, hemoglobin 9.7, MCV 65.2, platelets 229,000. CMP is within normal limits except for a random glucose of 184. IMPRESSION AND PLAN The patient is a 47-year-old female with metastatic low-grade endometrial stromal sarcoma with known metastases to her lungs. She previously had been treated with Lupron and anastrozole, but did not take these for much of 2018. She recently presented with significant iron-deficiency anemia and received two cycles of Venofer. 1. Metastatic low-grade endometrial stromal sarcoma. Continue anastrozole 1 mg daily. She is tolerating this well. She makes sure to eat crackers beforehand to avoid the nausea. She will also continue with Lupron 3.75 mg IM today. She is also tolerating this well. 2. Restaging. CT scan on 03/02/18 showed extensive pulmonary metastases that are increasing overall. There is a bulbous appearance to the tail of the pancreas, which appears slightly more prominent. Uterus is enlarged and heterogeneous. The previously described hypoattenuating masses projecting from the uterus have increased in size, with extrinsic mass effect on the sigmoid colon. Retroperitoneal adenopathy is slightly increased. 3. Gynecology. Since starting the Lupron she has not had any further menstrual cycles. She was referred to Dr. Al for evaluation for possible palliative hysterectomy but Dr. Al felt that she would be better served with a PRE BILLING CLINICIAN oncologist. She will be referred back to Dr. Yenny Dow or Dr. Yamileth Doss pending financial assistance. 4. Iron deficiency anemia. She received two cycles of IV Venofer. Hemoglobin has improved from 7.2 to 9.7. MCV is slowly improving, today is 65.2%. Iron studies will be rechecked in one month. 5. Follow up in one month for continued care, earlier if there is a problem. CBC, CMP, iron TIBC and ferritin will be drawn before that visit. MTDD
--- NOTE | 2018-04-07 08:17 | NUR ---
OMAR contacted [facility] HEAD MACHINIST oncologist office to find out about patient assistance. Unfortunately this office does not have a great patient assistance program, and may only help with 50-55% of her total, they also indicated the patient would have to front the remainder before they would operate. OMAR will visit with Dr. Park about this issue and get a recommendation on how to proceed.
--- NOTE | 2018-04-08 08:38 | NUR ---
OMAR also visited with Elisabeth Dyer ([phone]) [facility] social worker psychiatric about the possibility of getting financial assistance. She indicated they could not provide anything additional to 50% discount and yet the patient would have to pay the remainder up front. She recommended if the hysterectomy was necessary that the patient could potentially live in [place] and apply for [place] medicaid. OMAR will visit with Dr. Park and the patient to discuss options.
--- NOTE | 2018-04-17 14:57 | NUR ---
OMAR was unable to discuss the financial restraints with Dr. Park. SW emailed Dr. Park about this situation along with new information regarding [facility] for gynocologic oncology and their financial assistance. They may be able to help the patient with a write off, but require the patient to call and discuss need prior to application. SW provided the patient with this information and awaiting a return response (from patient and Dr. townsend).
[2018-04-22 09:16] VITALS: BP 112/73
[2018-04-22 10:15] LABS: PLATELET COUNT, AUTOMATED 218 K/uL (150-450)
--- NOTE | 2018-04-22 10:58 | NUR ---
SW visited with the pt about her plan for treatment after seeing the provider today. The pt reported she will plan to continue having iron infusions, lupron injections and taking the oral arimidex, but will also continue to pursue surgery as an option. Pt described having stress at home with her boyfriend, Cedric. She states that she feels she has neglected herself greatly along this process, meanwhile having to be a primary caregiver for Cedric. She states Cedric is resistent to having others help him with some of his medical issues (feet) and has been "covetous" with his money now that he has a parts data writer job with [employer]. She states because of their unique financial situation, she has a difficult time from him, she pays all of the bills while Cedric pays the rent. She has encouraged him to seek Section 8 housing, he has received two applications but neglects to complete them. She states Cedric has made himself sick (diverticulitis flare ups) with the anxiety and stress, yet Cedric continues to deny any problems and allow help. OMAR questioned whether the pt and Cedric would be open to having a discussion with SW and the pt together about what can be done to make things more fiscally functional. Pt believes Cedric would be agreeable. SW also offered to assist patient with finding employment and pt is agreeable to this. Pt is going to email SW her resume to get the ball rolling.
--- NOTE | 2018-04-22 11:19 | ONCOLOGY FOLLOW UP NOTE ---
EVENT DATE: April 22, 2018 REASON FOR FOLLOWUP Metastatic low grade endometrial stromal sarcoma. CHIEF COMPLAINT Blurry vision, hypoglycemia and hyperglycemia. HISTORY OF PRESENT ILLNESS Keerthi returns to the clinic for a follow-up visit today. She has not been seen in my clinic for quite some time but she has been seen several times more recently by Poly Ha NP, here at the [facility]. As discussed today, she had gone for a lot of 2018 without ongoing treatment for her endometrial stromal sarcoma. She had previously received Lupron and Aromatase inhibitor therapy with Arimidex. This had brought effect in terms of the extent of metastatic disease burden but, unfortunately, there have been a tremendous amount of financial concerns and reported issues with insurance. In any case, she had most recently presented with vaginal bleeding and iron deficiency. She has since receive intravenous Venofer and her repeat labs today are currently pending. She has also re-started Lupron and Arimidex and there has been substantial social work assistance in making these things happen. She has not yet visited with Gynecologic Oncology but she reports that she would be open- minded to doing so. She also reports blurry vision, which has been an issue for the past few weeks. She has had difficulty with blood sugar control, reportedly with blood sugars being as high as 500 and as low as the 40s. She is not particularly sure when she will have followup again with Dr. Wheeler to address this. She otherwise reports some ongoing fatigue but she does have a very busy schedule. She reports no shortness of breath, chest pain or productive cough. She otherwise denies new pain. REVIEW OF SYSTEMS Otherwise negative and all systems were reviewed. PAST MEDICAL HISTORY 1. Diabetes mellitus, as above. 2. Asthma. PAST SURGICAL HISTORY None on file. FAMILY HISTORY Unremarkable for malignancy. SOCIAL HISTORY Patient is a former smoker, having previously smoked about 10 cigarettes a day for five years. She quit one year ago. She is a nondrinker, and there is no history of illicit drug use. ALLERGIES No known drug allergies. CURRENT MEDICATIONS Tylenol p.r.n. VITAL SIGNS Temperature is 97.5, blood pressure 112/73, heart rate 81, respirations 16, oxygen saturation 96% on room air. PHYSICAL EXAMINATION GENERAL: Patient is alert and oriented x3, in no apparent distress, sitting in the exam room chair. She is interactive and quite pleasant. She appears healthy. HEENT: Anicteric sclerae and no significant oropharyngeal lesions. LUNGS: Clear to auscultation bilaterally. HEART: Regular rate and rhythm. NEUROLOGIC: Grossly nonfocal and her gait is normal. EXTREMITIES: No edema, clubbing or cyanosis. There is no erythema or tenderness to palpation. LABORATORY Reviewed per the [facility] record. Today's labs are pending. IMAGING Reviewed per the [facility] record. Most recent CT scan had shown progression of disease. ASSESSMENT AND PLAN 1. Metastatic low grade endometrial stromal sarcoma. I had a good visit with Keerthi today. We spent time today reviewing her oncology history and we addressed the long period of time that has gone between our last clinic appointment and now. Keerthi recently presented with recurrent vaginal bleeding and iron deficiency as a result of the bleeding. She has received Venofer but she has not felt particularly different as a result. We discussed her most recent CT scan that has shown evidence of progression of her endometrial stromal sarcoma due to lack of treatment. She has been working with Poly Ha NP, here at [facility] and she has again re-started treatment with Lupron and Arimidex. She reports that side effects have been pretty minimal but she did have an episode of nausea during a Venofer infusion that she believes may have been because of an empty stomach. Arthralgias have been pretty minimal. She has continued fatigue. We discussed our plan moving forward, which would certainly be to have continued social work involvement in her care. I certainly appreciate this. We will have her continue with Lupron and Arimidex for the time being and she will need to undergo re-imaging in a few months. We will see what her followup labs show today as she could require additional intravenous iron. We next discussed the importance of visiting with Gynecologic Oncology, wherever this physician may be. There continues to be significant limitations, potentially mostly from a financial standpoint, and where she can be seen. I do think that this element of her care has been missing and it is quite important. Keerthi expresses understanding. Finally, we discussed her blurry vision. I have recommended that she visit with optometry or ophthalmology in the near future. We will try to help her arrange this as well. All questions answered today. She will follow up here in one month with EPP. I spent a total of 30 minutes of time face to face with the patient today and 25 minutes of this was spent in direct counseling and coordination of care. LINDA
--- NOTE | 2018-04-28 08:14 | NUR ---
The patient has received two iron infusions thus far. Unfortunately neither infusion is being replaced through the [place] program because they were given before she was approved on the program. The patient is covered through the [facility] Patient Assistance Program at 100% at this time.
[~2018-04-30 16:00] MED LIST changes: +ALTEPLASE RECOMB 2 MG VIAL IVP PRN; +DEXTROSE 5%(*) 100 ML BAG 100 ML IVPB PRN; +HEPARIN FLSH (PORT) 500 UN/5ML IVP PRN; +IOPAMIDOL 76% 75 ML INFUS BTL 75 ML ONE; +IRON SUCROSE 100 MG/5 ML VIAL 300 MG in NS(*) 0.9% 250 ML BAG 250 ML IVPB ONE; +LEUPROLIDE IM ONLY ONE; +NS(*) 0.9% 500 ML BAG 500 ML IV PRN; +WATER FOR INJ,STERILE 20 ML IVP PRN
[2018-04-30 16:13] VITALS: BP 114/70
[2018-04-30 16:28] LABS: PLATELET COUNT, AUTOMATED 262 K/uL (150-450)
[2018-04-30] MEDS ORDERED: LEUPROLIDE IM ONLY ONE (16:45)
[2018-04-30] MEDS ORDERED: LEUP3.753 IM (19:15)
--- NOTE | 2018-05-01 14:41 | NUR ---
OMAR emailed patient back with suggestions on resume and a job she might be interested in applying for.
== END 2018-05-05 ==
LOC: SPU 16:00
PROVIDERS: ATTEND Internal Medicine Medical Oncology
DX: C54.1 Malignant neoplasm of endometrium (principal); R53.83 Other fatigue; Z86.711 Personal history of pulmonary embolism; Z79.01 Long term (current) use of anticoagulants; Z87.891 Personal history of nicotine dependence; E11.8 Type 2 diabetes mellitus with unspecified complications; Z79.4 Long term (current) use of insulin; D50.9 Iron deficiency anemia, unspecified; J45.909 Unspecified asthma, uncomplicated; N92.4 Excessive bleeding in the premenopausal period; Z59.9 Problem related to housing and economic circumstances, unspecified; Z60.9 Problem related to social environment, unspecified; C78.00 Secondary malignant neoplasm of unspecified lung; N85.2 Hypertrophy of uterus; R59.0 Localized enlarged lymph nodes
CPT/HCPCS: 36415; 71270; 74178; 82728; 83540; 83550; 85025; 85027; 96365; 96366; 96374; 96402; 99212; J1756; J1950; J7050; Q9967; 82040; 82247; 82310; 82374; 82435; 82565; 82947; 84075; 84132; 84155; 84295; 84450; 84460; 84520

== ENCOUNTER 2018-04-30 19:05 | Emergency (ER) | payer SELFPAY ==
[~2018-04-30 19:05] MED LIST changes: -ALTEPLASE RECOMB 2 MG VIAL IVP PRN; -DEXTROSE 5%(*) 100 ML BAG 100 ML IVPB PRN; -HEPARIN FLSH (PORT) 500 UN/5ML IVP PRN; -IOPAMIDOL 76% 75 ML INFUS BTL 75 ML ONE; -IRON SUCROSE 100 MG/5 ML VIAL 300 MG in NS(*) 0.9% 250 ML BAG 250 ML IVPB ONE; -LEUPROLIDE IM ONLY ONE; -NS(*) 0.9% 500 ML BAG 500 ML IV PRN; -WATER FOR INJ,STERILE 20 ML IVP PRN
--- NOTE | 2018-04-30 19:11 | ER Report ---
History and Physical Time Seen By MD: 19:11 (JULIÁN GAYTAN) Time Seen By MD: 21:49 (VASU HOLLOWAY DO) HPI/ROS CHIEF COMPLAINT: Hyperglycemia HISTORY OF PRESENT ILLNESS: This is a 47-year-old female presents emergency department for hyperglycemia. Patient's been receiving Lupron injections at the cancer center, she does get preinjection blood work, was noted to have an elevated blood sugar, they told her to come to the ER for evaluation. Patient states that she is a type II diabetic, has been losing some weight, watching what she eats and drinks, has been doing okay the last 1-2 years however over the last several months she's noted that her blood sugars have been irregular, a member from 200-600. No aches or chills. No nausea or vomiting. She does state that she has some word vision which is increased, the last time she had blurred vision several years ago when her A1c was high. REVIEW OF SYSTEMS: Constitutional: No fever, no chills. Eyes: As above. ENT: No sore throat. Cardiovascular: No chest pain, no palpitations. Respiratory: No cough, no shortness of breath. Gastrointestinal: No abdominal pain, no vomiting. Genitourinary: No hematuria. Musculoskeletal: No back pain. Skin: No rashes. Neurological: As above. (JLUIÁN GAYTAN) HPI/ROS Please see Julián Gaytan's note (VASU HOLLOWAY DO) Allergies: Coded Allergies: No Known Drug Allergies (Unverified , 04/30/18) Home Meds Reported Medications Leuprolide Acet 3.75 Mg Qmonth (LUPRON DEPOT 3.75 MG QMONTH) 3.75 Mg Syringekit, 3.75 MG IM DIRECTED, SYR EVERY MONTH 04/30/18 Anastrozole (ARIMIDEX) 1 Mg Tablet, 1 MG PO DAILY 04/22/18 Acetaminophen (TYLENOL) 325 Mg Tablet, 325 MG PO PRN, TAB 12/19/16 Past Medical/Surgical History The patient has a past medical and surgical history of asthma, type II diabetes, endometrial sarcoma. (JULIÁN GAYTAN) Reviewed Nurses Notes: Yes (JULIÁN GAYTAN) Hx Smoking: Yes Smoking Status: Former Smoker Exposure to Second Hand Smoke?: Yes Hx Substance Use Disorder: No Hx Alcohol Use: No (JULIÁN GAYTAN [facility]) Constitutional Vital Sign - Last 24 Hours 04/30/18 04/30/18 04/30/18 04/30/18 19:09 19:12 19:20 19:30 Temp 98.1 Pulse 89 85 Resp 12 B/P (MAP) 125/85 125/85 (98) 108/71 (83) Pulse Ox 92 94 O2 Delivery Room Air 04/30/18 04/30/18 20:00 20:05 Pulse 66 B/P (MAP) ???/??? (1665) Pulse Ox 93 Intake and Output 04/30/18 04/30/18 05/01/18 14:59 22:59 06:59 Intake Total 2000 ml Balance 2000 ml (VASU HOLLOWAY DO) Physical Exam General Appearance: The patient is alert, has no immediate need for airway protection and no signs of toxicity. Eyes: Pupils equal and round no pallor or injection. No concerning findings on fundus exam. ENT, Mouth: Mucous membranes are moist. Respiratory: There are no retractions, lungs are clear to auscultation. Cardiovascular: Regular rate and rhythm. Gastrointestinal: Abdomen is soft and non tender, no masses, bowel sounds normal. Neurological: Alert and oriented 4. Moving all extremities. Following all commands. No focal neuro deficits. Skin: Warm and dry, no rashes. Musculoskeletal: Neck is supple non tender. Extremities are nontender, nonswollen and have full range of motion. DIFFERENTIAL DIAGNOSIS: After history and physical exam differential diagnosis was considered for hypoglycemia, diabetic ketoacidosis. (JULIÁN GAYTAN [facility]) Physical Exam Please see Julián Gaytan's note (VASU HOLLOWAY DO) Medical Decision Making Data Points Laboratory Hematology Test 04/30/18 19:45 04/30/18 22:26 Red Blood Count 5.75 M/uL (4.17-5.56) Mean Corpuscular Volume 69.2 fL (80.0-96.0) Mean Corpuscular Hemoglobin 20.6 pg (26.0-33.0) Mean Corpuscular Hemoglobin Concent 29.7 g/dL (32.0-36.0) Red Cell Distribution Width 23.6 % (11.5-14.5) Mean Platelet Volume 9.3 fL (7.2-11.1) Neutrophils (%) (Auto) 56.3 % (39.4-72.5) Lymphocytes (%) (Auto) 34.7 % (17.6-49.6) Monocytes (%) (Auto) 6.1 % (4.1-12.4) Eosinophils (%) (Auto) 1.7 % (0.4-6.7) Basophils (%) (Auto) 1.2 % (0.3-1.4) Nucleated RBC Relative Count (auto) 0.1 /100WBC Neutrophils # (Auto) 2.8 K/uL (2.0-7.4) Lymphocytes # (Auto) 1.7 K/uL (1.3-3.6) Monocytes # (Auto) 0.3 K/uL (0.3-1.0) Eosinophils # (Auto) 0.1 K/uL (0.0-0.5) Basophils # (Auto) 0.1 K/uL (0.0-0.1) Nucleated RBC Absolute Count (auto) 0.00 K/uL Peripheral Blood Smear Yes Y/N Blood Gas Patient Temperature Unknown DEGREES Venous Blood pH 7.36 (7.31-7.41) Venous Blood Partial Pressure CO2 43 mmHg Venous Blood Partial Pressure O2 < 35 mmHg Venous Blood HCO3 24 mmol/L Venous Blood Oxygen Saturation 53 % Venous Blood Base Excess -1 mmol/L Oxygen Liters/Minute Unknown Sodium Level 133 mmol/L (137-145) Potassium Level 4.4 mmol/L (3.5-5.0) Chloride Level 98 mmol/L (98-107) Carbon Dioxide Level 25 mmol/L (22-31) Blood Urea Nitrogen 17 mg/dl (7-18) Creatinine 0.90 mg/dl (0.52-1.04) Glomerular Filtration Rate Calc > 60.0 Random Glucose 706 mg/dl (75-110) Osmolality 318 mOSM/K (275-295) Calcium Level 8.4 mg/dl (8.4-10.2) Total Bilirubin 0.1 mg/dl (0.2-1.3) Aspartate Amino Transf (AST/SGOT) 14 U/L (0-35) Alanine Aminotransferase (ALT/SGPT) 18 U/L (0-56) Alkaline Phosphatase 174 U/L (0-126) Total Protein 7.7 g/dl (6.3-8.2) Albumin 3.8 g/dl (3.5-5.0) Human Chorionic Gonadotropin, Qual Negative (NEGATIVE) Acetone, Qualitative Negative Whole Blood Glucose 521 mg/DL (75-110) Chemistry Test 04/30/18 19:45 04/30/18 22:26 White Blood Count 5.0 k/uL (4.5-11.0) Red Blood Count 5.75 M/uL (4.17-5.56) Hemoglobin 11.8 g/dL (12.0-16.0) Hematocrit 39.8 % (34.0-47.0) Mean Corpuscular Volume 69.2 fL (80.0-96.0) Mean Corpuscular Hemoglobin 20.6 pg (26.0-33.0) Mean Corpuscular Hemoglobin Concent 29.7 g/dL (32.0-36.0) Red Cell Distribution Width 23.6 % (11.5-14.5) Platelet Count 234 K/uL (150-450) Mean Platelet Volume 9.3 fL (7.2-11.1) Neutrophils (%) (Auto) 56.3 % (39.4-72.5) Lymphocytes (%) (Auto) 34.7 % (17.6-49.6) Monocytes (%) (Auto) 6.1 % (4.1-12.4) Eosinophils (%) (Auto) 1.7 % (0.4-6.7) Basophils (%) (Auto) 1.2 % (0.3-1.4) Nucleated RBC Relative Count (auto) 0.1 /100WBC Neutrophils # (Auto) 2.8 K/uL (2.0-7.4) Lymphocytes # (Auto) 1.7 K/uL (1.3-3.6) Monocytes # (Auto) 0.3 K/uL (0.3-1.0) Eosinophils # (Auto) 0.1 K/uL (0.0-0.5) Basophils # (Auto) 0.1 K/uL (0.0-0.1) Nucleated RBC Absolute Count (auto) 0.00 K/uL Peripheral Blood Smear Yes Y/N Blood Gas Patient Temperature Unknown DEGREES Venous Blood pH 7.36 (7.31-7.41) Venous Blood Partial Pressure CO2 43 mmHg Venous Blood Partial Pressure O2 < 35 mmHg Venous Blood HCO3 24 mmol/L Venous Blood Oxygen Saturation 53 % Venous Blood Base Excess -1 mmol/L Oxygen Liters/Minute Unknown Glomerular Filtration Rate Calc > 60.0 Osmolality 318 mOSM/K (275-295) Calcium Level 8.4 mg/dl (8.4-10.2) Total Bilirubin 0.1 mg/dl (0.2-1.3) Aspartate Amino Transf (AST/SGOT) 14 U/L (0-35) Alanine Aminotransferase (ALT/SGPT) 18 U/L (0-56) Alkaline Phosphatase 174 U/L (0-126) Total Protein 7.7 g/dl (6.3-8.2) Albumin 3.8 g/dl (3.5-5.0) Human Chorionic Gonadotropin, Qual Negative (NEGATIVE) Acetone, Qualitative Negative Whole Blood Glucose 521 mg/DL (75-110) Toxicology Test 04/30/18 19:45 Acetone, Qualitative Negative (VASU HOLLOWAY DO) ED Course/Re-evaluation ED Course The patient was admitted to room. A history and physical were obtained. Differential diagnoses were considered. An IV was started. A CBC, CMP were obtained. A 1 L normal saline bolus was given 2.CBC showing MCV 69.2, MCH 20.6, MCV HC 29.7, chemistry showing glucose 706, osmolality 318, negative hCG, normal venous blood gas, negative acetone. I did review these results with the patient. I did tell her that her laboratory studies do not indicate acidosis. Turned Over The care of the patient was turned over to Dr. Holloway. BUD Triplett I authorize my typed signature that I authenticated this report. (JULIÁN GAYTAN-) ED Course I assumed patient care from Julián Gaytan at 2100. Patient finished a 2nd liter of fluid and glucose was rechecked and was 521. Patient was asymptomatic at time of reevaluation. Patient was advised to follow-up with her primary care provider and arrange for endocrinology follow-up. Patient was hemodynamically stable, afebrile at time of discharge. Return precautions provided. Decision to Disposition Date: Apr 30, 2018 Decision to Disposition Time: 22:47 (VASU HOLLOWAY DO) Depart Departure Latest Vital Signs Vital Signs Date Time Temp Pulse Resp B/P (MAP) Pulse Ox O2 Delivery O2 Flow Rate FiO2 04/30/18 20:05 66 93 04/30/18 20:00 ???/??? (1665) 04/30/18 19:09 98.1 12 Room Air (VASU HOLLOWAY DO) Impression: Primary Impression: Hyperglycemia Condition: Improved Disposition: HOME OR SELF-CARE Referrals: LANA MCCORMICK MD (PCP) Patient Instructions: Diabetic Hyperglycemia (ED) Additional Instructions: Please drink plenty of water. Please monitor your glucose levels and follow-up with her primary care provider and endocrinology in order to better control you are glucose levels. Overtime, uncontrolled glucose levels can cause cardiovascular disease, kidney damage, . Please return promptly if you develop headaches, visual changes, fevers, chills, inability to keep down food or fluids. JULIÁN GAYTAN [employer] Apr 30, 2018 19:11 VASU HOLLOWAY DO Apr 30, 2018 21:49
[2018-04-30] MEDS ORDERED: LEUP3.753 IM (19:15)
[2018-04-30] MEDS ORDERED: NS(*) 0.9% 1000 ML BAG 1,000 ML IV ONE ×2 (19:31→20:35)
[2018-04-30 19:53] LABS: PLATELET COUNT, AUTOMATED 234 K/uL (150-450)
== END 2018-04-30 23:09 | disposition home or self-care (01) ==
LOC: ER 19:23
DX: E11.65 Type 2 diabetes mellitus with hyperglycemia (principal); C54.1 Malignant neoplasm of endometrium; Z87.891 Personal history of nicotine dependence
CPT/HCPCS: 36416; 82009; 82803; 82948; 83930; 84703; 85025; 96360; 96361; 99283; J7030; 82040; 82247; 82310; 82374; 82435; 82565; 82947; 84075; 84132; 84155; 84295; 84450; 84460; 84520

== ENCOUNTER 2018-07-27 12:30 | Outpatient (RCR) | payer SELFPAY ==
--- NOTE | 2018-05-08 09:40 | NUR ---
SW requested next dose of Lupron from the manufacturers program. It will be delivered between 05/13-05/15. Pharmacy has been notified.
[2018-05-20 16:10] VITALS: BP 129/87
--- NOTE | 2018-06-03 15:22 | ONCOLOGY FOLLOW UP NOTE ---
EVENT DATE: May 20, 2018 REASON FOR FOLLOWUP 1. Metastatic low-grade endometrial stromal sarcoma. 2. Diabetes mellitus, uncontrolled. CHIEF COMPLAINT Fatigue, elevated blood sugar. INTERIM HISTORY Keerthi returns to clinic for a followup visit today. Unfortunately, since our last visit, she was sent to the Emergency Department due to extremely high glucose values. She was discharged to home, and she reports that she has not made any significant medication changes, and because she is under the impression that she has type 2 diabetes that she does not need insulin. She has been working very hard, however, to lose weight. She has been successful in this regard. She has been checking her blood sugars at home, and they have not been quite as high. She continues on Arimidex and Lupron. Toxicity from therapy has been pretty minimal. She has had no significant issues with vaginal bleeding. She reports no shortness of breath, chest pain, or productive cough. She has had some hot flashes. She has not reestablished care with a primary care provider for management of her diabetes. REVIEW OF SYSTEMS Otherwise negative, and all systems are reviewed. PAST MEDICAL HISTORY 1. Metastatic low-grade endometrial stromal sarcoma, as above. 2. Diabetes mellitus. 3. Asthma. CURRENT MEDICATIONS 1. Lupron. 2. Arimidex. 3. Tylenol. ALLERGIES No known drug allergies. FAMILY HISTORY Unremarkable for malignancy. SOCIAL HISTORY Patient is a former smoker, having quit about one year ago. She is a nondrinker. There is no history of illicit drug use. VITAL SIGNS Temperature is 98.9, blood pressure 129/87, heart rate is 88, respirations 16, oxygen saturation is 92% on room air. Weight is 92.8 kg. PHYSICAL EXAMINATION GENERAL: Patient is alert and oriented times three, no apparent distress, sitting in the exam room chair. She appears healthy and is interactive and pleasant. HEENT: Anicteric sclerae. NEUROLOGIC: Grossly nonfocal, and her gait is normal. EXTREMITIES: No edema, clubbing, or cyanosis. SKIN: No concerning rash or lesion. LABORATORY STUDIES Reviewed per the [facility] record. IMAGING None today. ASSESSMENT AND PLAN 1. Metastatic low-grade endometrial stromal sarcoma. Keerthi continues on Lupron and Arimidex, which she seems to be tolerating without significant difficulty. As discussed, she will be due to undergo re-imaging in the next month or so, but I would like for her to follow up here in the next couple weeks with nurse practitioner to touch base, and I have implored her to reestablish care with a primary care provider for management of her diabetes, which is not controlled. See below. 2. Diabetes mellitus. We spent the majority of our time today discussing her diabetes as opposed to her sarcoma. We discussed the importance of finding a provider with expertise in this area to help her with blood sugar control, as although she reports her most recent values at home have been better, she has presented recently with very high blood glucose values. She has not been particularly happy with her options in this regard, and this has been addressed by a oncology social work here as well. All questions answered today. LINDA
[2018-06-29 15:15] VITALS: BP 127/89
[2018-06-29 16:55] VITALS: BP 133/88
--- NOTE | 2018-06-30 07:33 | ONCOLOGY FOLLOW UP NOTE ---
EVENT DATE: June 29, 2018 REASON FOR FOLLOWUP 1. Metastatic low-grade endometrial stromal sarcoma. 2. Diabetes mellitus, uncontrolled. CHIEF COMPLAINT Patient is here for ongoing care regarding her metastatic low-grade endometrial stromal sarcoma. DIAGNOSES 1. Metastatic low-grade endometrial stromal sarcoma. 2. Diabetes mellitus, uncontrolled. INTERIM HISTORY Keerthi returns today for a followup visit. She was last seen the end of April this year with her followup with Dr. Park. She reports that her blood sugar has been under better control and that it has been in good range recently. She tells me she has not had any vasomotor symptoms at all. She continues on daily Arimidex without difficulty. She continues on Lupron and is scheduled to receive this today. Her toxicity from therapy has been minimal. She denies any unusual bleeding to include no vaginal bleeding. She denies any shortness of breath, chest pain, productive cough. She has not re-established care with a primary care provider yet as we have encouraged primary care physician for management of her diabetes. Lastly, when she was seen for follow-up in April we ordered two weekly doses of Venofer. Unfortunately, she missed several appointments including her iron infusions and hasn't yet started Venofer. She will be receiving Venofer today, as well as scheduled Lupron. PAST MEDICAL HISTORY 1. Metastatic low-grade endometrial stromal sarcoma, as above. 2. Diabetes mellitus. 3. Asthma. FAMILY HISTORY Unremarkable for malignancy. SOCIAL HISTORY Patient is a former smoker, having quit about one year ago. She is a nondrinker. There is no history of illicit drug use. ALLERGIES No known drug allergies. CURRENT MEDICATIONS 1. Lupron. 2. Arimidex. 3. Tylenol. REVIEW OF SYSTEMS CONSTITUTIONAL: Patient denies any fevers, chills or night sweats. No recent infections. HEENT: No vision changes. No hearing difficulties. No mouth sores. No dysphagia or odynophagia. LUNGS: No shortness of breath, cough, sputum production or hemoptysis. CARDIOVASCULAR: Regular rate and rhythm. No ectopy. GI: No abdominal pain, nausea, vomiting, constipation, diarrhea, bright red blood per rectum or melena. Appetite is normal. : No dysuria, hematuria or genitourinary discharge. 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 ENDOCRINE: Patient denies any heat or cold intolerance. She denies any recent vasomotor symptoms or hot flashes. She does report some fatigue. Remainder of a 12-point review of systems is performed today and is otherwise negative. PHYSICAL EXAMINATION VITAL SIGNS: T 98.5, P 94, R 16, BP 127/89, oxygen saturation 97% room air. GENERAL: This is a pleasant 48-year old woman who appears to be in no acute distress. HEAD: Atraumatic, normocephalic. EYES: Sclerae anicteric. ENT/MOUTH: Moist mucous membranes. No mucositis. NECK: Supple. No lymphadenopathy. CARDIOVASCULAR: Regular rate and rhythm. No ectopy. LUNGS: Clear to auscultation bilaterally. ABDOMEN: Soft, nontender, nondistended. Bowel sounds positive x4. NEURO: Patient is awake, alert, oriented x3. DERM: No rash. No petechiae or purpura. LABORATORY Pending today. Patient is a difficult peripheral stick and this is being done at time of visit. Our computer system was also down today. IMPRESSION/PLAN This is a pleasant 48-year old woman with metastatic low-grade endometrial stromal sarcoma. She continues on Lupron monthly for this as well as Arimidex. She reports tolerating Arimidex well without any significant toxicity and continues to report tolerating Lupron well. We discussed re-imaging at her last visit. She also has diabetes and reports that her blood sugars have been in good control. She does need to followup with a primary care physician for this. 1. Metastatic low-grade endometrial stromal sarcoma: Patient will continue with daily Arimidex and monthly Lupron. 2. Imaging: We would like for patient to have re-staging scans done with a CT chest, abdomen and pelvis in the next few weeks, end of June/early July. I have written orders for this today. 3. Diabetes: Currently under better control per patient. She is to establish care with a primary care provider. 4. Iron deficiency. Patient will proceed with Venofer IV today. She will need to return to clinic in one week for the second dose. 5. I have asked the patient to return to clinic in six weeks for followup with physician and at that time we can review CT scan results if they are back. MTDD
--- NOTE | 2018-07-01 09:01 | NUR ---
Late last week, pt came in to discuss her concerns about brining her significant other back home after his heart surgery. She is concerned that he will need additional help at home than she can provide. SW attempted to contact the discharge planning team at the hospital that the pt's SO was at to inform them of this concern and to assist with setting up services, however SW did not receive a call back. The pt's SO is now home and she is still concerned that he may need more help. OMAR will visit with pt and SO today regarding potential needs.
--- NOTE | 2018-07-01 09:03 | NUR ---
SW ordered pt's next lupron injection. It will be delivered to [facility] between 07/10/18 - 07/15/18. pharmacy informed to be on the look out.
--- NOTE | 2018-07-01 15:19 | NUR ---
OMAR visited with pt and her SO, Cedric, at their home. Pt expressed some concern for their plan to separate, because she was worried that it could leave Cedric without appropriate care at home. Cedric was in disagreement about this concern and stated "I'll be fine." SW suggested Cedric reach out to [facility] to connect with a straw hat machine operator to the with some of the details of finding housing, finding work if he was able to work, and potentially re-applying for medicaid. The pt stated her primary concern is getting Cedric connected with section 8 housing so he can afford to have his own residence. OMAR will follow up with pt and Cedric later this week or early next week.
[~2018-07-27 12:30] MED LIST changes: +DEXTROSE 5%(*) 100 ML BAG 100 ML IVPB PRN; +IRON SUCROSE 100 MG/5 ML VIAL 200 MG in NS(*) 0.9% 100 ML BAG 100 ML IVPB ONE; +LEUPROLIDE IM ONLY ONE; +LIDOCAINE/SOD BICARB 8.4% SYR ID PRN; +NS(*) 0.9% 100 ML BAG 100 ML IVPB PRN
[2018-07-27] MEDS ORDERED: LEUPROLIDE IM ONLY ONE (13:05)
[2018-07-27 13:12] VITALS: BP 120/85
--- NOTE | 2018-07-31 08:30 | NUR ---
SW requested shipment of next Lupron injection. Will arrive between 08/11 - 08/15
== END 2018-08-17 ==
LOC: SPU 12:30
PROVIDERS: ATTEND Internal Medicine Medical Oncology
DX: C54.1 Malignant neoplasm of endometrium (principal); D50.9 Iron deficiency anemia, unspecified; E11.9 Type 2 diabetes mellitus without complications; Z79.811 Long term (current) use of aromatase inhibitors; Z79.818 Long term (current) use of other agents affecting estrogen receptors and estrogen levels
CPT/HCPCS: 96365; 96372; 99212; J1756; J1950; J7050

== ENCOUNTER → 2018-08-03 | Outpatient (CLI) | payer SELFPAY ==
[~2018-08-03] MED LIST changes: -DEXTROSE 5%(*) 100 ML BAG 100 ML IVPB PRN; +IOPAMIDOL 76% 100 ML INFUS BTL 100 ML ONE; -IRON SUCROSE 100 MG/5 ML VIAL 200 MG in NS(*) 0.9% 100 ML BAG 100 ML IVPB ONE; -LEUPROLIDE IM ONLY ONE; -LIDOCAINE/SOD BICARB 8.4% SYR ID PRN; -NS(*) 0.9% 100 ML BAG 100 ML IVPB PRN
[2018-08-03 10:26] LABS: PLATELET COUNT, AUTOMATED 164 K/uL (150-450)
--- NOTE | 2018-08-03 16:50 | RADIOLOGY IMAGING REPORT ---
FACILITY: [facility] PATIENT NAME: Keerthi Vasquez : 1970 MR: [id number] V: [id number] EXAM DATE: ORDERING PHYSICIAN: ALEXIS GAMEZ TECHNOLOGIST: Location: [facility] Patient: Keerthi Vasquez : 1970 Visit/Account:[id number] Date of Sevice: 08/03/2018 CHEST/AB/PELV W/CONTRAST HISTORY: Endometrial cancer ADDITIONAL HISTORY: None. TECHNIQUE: Following administration of IV contrast axial images acquired through the chest abdomen a nd pelvis during the portal venous phase. Coronal and sagittal reformatting was also performed.Dose Lowering Technique One of the following dose optimization techniques was utilized in the performance of this exam: Autom ated exposure control; adjustment of the mA and/or kV according to the patient's size; or use of an i terative reconstruction technique. Specific details can be referenced in the facility's radiology C T exam operational policy. CONTRAST: 75 mL Isovue-[id number] COMPARISON: March 02, 2018 FINDINGS: CHEST: Lungs/Pleura: Again noted are numerous poorly metastases but the lungs. Most of the nodules have pa rtially decreased in size. There are several new groundglass opacities in the right upper lobe and s uperior segment of the right lower lobe which could actually represent infectious/inflammatory proces s although follow-up recommended. There is no evidence of pleural effusions Mediastinum/lymph nodes: Negative. Heart/vessels: Negative. Bones/soft tissues: S-shaped scoliosis of the thoracolumbar spine. No aggressive appearing bone les ions are seen ABDOMEN AND PELVIS: Hepatobiliary: Negative. Spleen: Splenic calcifications which may represent granulomas Pancreas: Negative. Adrenals: Negative. Kidneys ureters and bladder : There is lobulation of the kidneys. Subcentimeter hypodensity in the left kidney may represent a cyst although is too small to characterize. The bladder is decompre ssed. Genitalia: Uterus is enlarged and extremely heterogeneous. The previously noted mass projecting from the posterior superior aspect of the uterus is relatively unchanged in size now measuring 9.9 x 8.8 x 6.5 cm previously measuring 10.1 x 8.9 x 6.2 cm. The additional mass projecting along the anterior superior aspect of the uterus now measures 2 x 2.8 x 2.4 cm previously measuring 5.6 x 3.6 x 3.1 cm GI: Again noted is extrinsic mass effect on the left side of the sigmoid colon due to the pelvic ma ss although no evidence of bowel obstruction. The appendix is visualized and does not appear inflame d Vessels/spaces/nodes: There appears to be less contrast enhancement within the SMV and branches rela tive to the main portal vein. Small amount thrombus not entirely excluded. Period the retroperitone al adenopathy appears to have decreased Bones/soft tissues: There is a small umbilical hernia containing fat. No aggressive appearing bone lesions are seen Additional findings: None pertinent. IMPRESSION: There is been a positive response to therapy with a decrease in the size of the numerous pulmonary me tastases. There are several new groundglass opacities in the right upper lobe and superior segment of the right lower lobe which could actually represent infectious/inflammatory process although follow-up recomme nded Uterus is enlarged and extremely heterogeneous. The previously noted uterine masses are slightly dec reased in size There has been a decrease in the retroperitoneal adenopathy Less contrast enhancement within the SMV and branches relative to the main portal vein. A small amou nt thrombus is not entirely excluded Report Dictated By: Lolis Colón MD at 08/03/2018 4:19 PM Report E-Signed By: Lolis Colón MD at 08/03/2018 4:46 PM WSN:[id number]
== END ==
LOC: CT 01:10
PROVIDERS: ATTEND Nurse Practitioner
DX: C54.1 Malignant neoplasm of endometrium (principal); G61.1 Serum neuropathy
CPT/HCPCS: 36415; 71260; 74177; 82728; 83540; 83550; 85025; Q9967; 82040; 82247; 82310; 82374; 82435; 82565; 82947; 84075; 84132; 84155; 84295; 84450; 84460; 84520

== ENCOUNTER 2018-08-18 16:26 | Outpatient (RCR) | payer SELFPAY ==
[~2018-08-18 16:26] MED LIST changes: -IOPAMIDOL 76% 100 ML INFUS BTL 100 ML ONE
== END 2018-08-19 14:19 | disposition home or self-care (01) ==
LOC: SPU 16:26
PROVIDERS: ATTEND Internal Medicine Medical Oncology
DX: Z02.9 Encounter for administrative examinations, unspecified (principal)